=== PATIENT | male | born 1955 | race Caucasian/White ===

== ENCOUNTER 2022-01-01 18:25 | Emergency (ER) | payer MEDICARE, SELFPAY ==
[2022-01-01 18:26] VITALS: BP 138/69; PULSE 67; RESP 16; TEMP 36.6; O2SAT 98; BMI 43.0
--- NOTE | 2022-01-01 18:37 | HMH.EDGENADL ---
ED Disposition Clinical Impression: Abdominal muscle strain Disposition: Home, Self-Care Condition on Discharge: Good Instructions: DI for Muscle Strain Additional Instructions: Recommend rest along with Tylenol naproxen and muscle relaxers. Return to the ER for any new or worsening symptoms. Prescriptions: methocarbamoL [Methocarbamol] 1,500 mg PO TID PRN #15 tab PRN Reason: spasm Transmission Status: Pending to [id number] Time of Disposition: 19:58 - Critical Care Critical Care Time: No Attestation: On , the high probability of a clinically significant, sudden or life threatening deterioration of the following system(s) required my full and direct attention, intervention and personal management. The time I documented below is in addition to time spent performing reported procedures but includes the following listed in this critical care notation. Medical Decision Making - Medical Records Medical records reviewed: Yes: I reviewed the patient's medical records. - Mckay Inquiry Pt receiving controlled substance: No Vital Signs: 01/01/22 18:26 Temperature 98 F Temperature Source Oral Pulse Rate [Radial] 67 Respiratory Rate 16 Blood Pressure [Right Arm] 138/69 Blood Pressure Mean [Right Arm] 92 Blood Pressure Position [Right Arm] Sitting 02 Sat by Pulse Oximetry 98 Oxygen Delivery Method Room Air - Lab Data Lab results reviewed: Yes: I reviewed the patient's lab results. Lab Results 01/01/22 18:50: WBC 8.4, RBC 5.07, Hgb 16.2, Hct 50.3, MCV 99.0 H, MCH 31.9 H, MCHC 32.2, RDW 15.8, Plt Count 146, MPV 8.0, Neut % (Auto) 72.0, Lymph % (Auto) 20.8, [place] % (Auto) 3.8, Eos % (Auto) 1.1, Baso % (Auto) 2.2 H, Neut # (Auto) 6.1, Lymph # (Auto) 1.8, [place] # (Auto) 0.3, Eos # (Auto) 0.1, Baso # (Auto) 0.2 01/01/22 18:50: Sodium 141, Potassium 3.8, Chloride 104, Carbon Dioxide 30, Anion Gap 10.8, BUN 13, Creatinine 0.70, Estimated Creat Clear 74, Estimated GFR 112, Est GFR ( Amer) 136, Glucose 115 H, Calcium 9.5, Total Bilirubin 0.2, AST 42, ALT 34, Alkaline Phosphatase 70, Total Protein 7.3, Albumin 4.1, Globulin 3.2, Albumin/Globulin Ratio 1.3 Result diagrams: 01/01/22 18:50 01/01/22 18:50 Orders (Tests/Meds): ED MEDICATIONS Generic Name Dose Route Start Last Admin Trade Name Freq PRN Reason Stop Dose Admin Sodium Chloride 1,000 mls @ 999 mls/hr 01/01/22 19:00 01/01/22 19:32 Sod Chlor 0.9% 1000ml Bag IV 01/01/22 20:00 999 mls/hr .Q1H1M WILBERT Administration Discontinued Medications Generic Name Dose Route Start Last Admin Trade Name Freq PRN Reason Stop Dose Admin Diazepam 5 mg 01/01/22 18:56 01/01/22 19:33 Diazepam 5mg Tablet PO 01/01/22 18:57 5 mg ONCE ONE Administration Ketorolac Tromethamine 15 mg 01/01/22 18:56 01/01/22 19:32 Ketorolac 30mg/Ml Vial IV 01/01/22 18:57 15 mg ONCE ONE Administration ORDERS Category Date Time Status Urinalysis and Microscopic Stat Lab 01/01/22 18:45 Ordered - CT Data CT Scan: Abdomen Time Received: 19:55 Findings Narrative: Patient: Breezy Goddard MR#: [id number] : 1955 Acct:[id number] Age/Sex: 66 / M ADM Date: 01/01/22 Loc: ER Attending Dr: Ordering Physician: Mark Pinon MD Date of Service: 01/01/22 Procedure(s): CT abdomen pelvis wo con Accession Number(s): [id number] cc: Leroy Snyder MD; Mark Pinon MD; Provider,Referral MD~ PROCEDURE INFORMATION: Exam: CT Abdomen And Pelvis Without Contrast Exam date and time: 01/01/2022 7:03 PM Age: 66 years old Clinical indication: Abdominal pain; Localized; Right; Prior surgery; Surgery date: 6+ months; Surgery type: Gb and umbilical hernia repair; Additional info: Right abdomen/ flank pain TECHNIQUE: Imaging protocol: Computed tomography of the abdomen and pelvis without contrast. Radiation optimization: All CT scans at this facility use at least one of t
--- NOTE | 2022-01-01 18:55 | CT_ITS ---
PROCEDURE INFORMATION: Exam: CT Abdomen And Pelvis Without Contrast Exam date and time: 01/01/2022 7:03 PM Age: 66 years old Clinical indication: Abdominal pain; Localized; Right; Prior surgery; Surgery date: 6+ months; Surgery type: Gb and umbilical hernia repair; Additional info: Right abdomen/ flank pain TECHNIQUE: Imaging protocol: Computed tomography of the abdomen and pelvis without contrast. Radiation optimization: All CT scans at this facility use at least one of these dose optimization techniques: automated exposure control; mA and/or kV adjustment per patient size (includes targeted exams where dose is matched to clinical indication); or iterative reconstruction. COMPARISON: No relevant prior studies available. FINDINGS: Lungs: Dependent atelectasis and scarring. Heart: Heart is enlarged. Moderate coronary artery calcifications. Diaphragm: Sliding hiatal hernia. Liver: Normal. No mass. Gallbladder and bile ducts: Gallbladder is surgically absent. No pathologic dilation of the biliary tree. Pancreas: Mild atrophy of the otherwise unremarkable pancreas. Spleen: Normal. No splenomegaly. Adrenal glands: Normal. No mass. Kidneys and ureters: Normal. No hydronephrosis. Stomach and bowel: Minimal diverticular disease of the distal colon. No evidence of diverticulitis. Appendix: The appendix appears normal. Intraperitoneal space: Unremarkable. No free air. No significant fluid collection. Vasculature: Calcifications within the aorta and its branches. Lymph nodes: Unremarkable. No enlarged lymph nodes. Urinary bladder: Unremarkable as visualized. Reproductive: Unremarkable as visualized. Bones/joints: Did degenerative spondylosis, rotoscoliosis and facet arthropathy are identified within the spine. Osteophytosis and eburnation of the sacroiliac joints and hips. Skeletal structures are negative for evidence of aggressive process or acute fracture. Diffuse degenerative disc and facet disease result in multilevel central and foraminal stenosis within the lumbar spine. Soft tissues: Retention sutures are identified in the anterior abdominal wall midline. Bilateral fat containing inguinal hernias. IMPRESSION: 1. No evidence for acute process is identified on CT of abdomen and pelvis. 2. Cardiomegaly. 3. Atherosclerotic vascular disease. 4. Sliding hiatal hernia. 5. Gallbladder is surgically absent. No pathologic dilation of the biliary tree. 6. The appendix appears normal. 7. Retention sutures are identified in the anterior abdominal wall midline. 8. Minimal diverticular disease of the distal colon. No evidence of diverticulitis. 9. Bilateral fat containing inguinal hernias. 10. Degenerative disc and facet disease result in multilevel central and foraminal stenosis within the lumbar spine.
[2022-01-01 19:05] LABS: Basophils # 0.2 K/mm3 (0-0.2); Basophils % 2.2 % (0.1-2.0); Eosinophils # 0.1 K/mm3 (0.0-0.4); Eosinophils % 1.1 % (0.1-12.0); Hematocrit 50.3 % (42.0-52.0); Hemoglobin 16.2 g/dL (14.1-18.0); Lymphocytes # 1.8 K/mm3 (0.7-4.5); Lymphocytes % 20.8 % (10-50); Mean Corpuscular HGB Conc 32.2 g/dL (31.8-35.4); Mean Corpuscular Hemoglobin 31.9 pg (27.0-31.2); Monocytes # 0.3 K/mm3 (0.1-1.0); Monocytes % 3.8 % (1.7-9.3); Neutrophils # 6.1 K/mm3 (1.8-7.8); Platelet Count 146 K/mm3 (142-424); Red Blood Count 5.07 M/mm3 (4.60-6.20); Red Cell Distribution Width 15.8 % (11.5-17.5); White Blood Count 8.4 K/mm3 (4.8-10.8)
[2022-01-01 19:13] LABS: Alanine Aminotransferase 34 U/L (12-78); Albumin Level 4.1 g/dl (3.5-5.0); Albumin/Globulin Ratio 1.3 (1.1-1.8); Alkaline Phosphatase 70 U/L (38-126); Anion Gap 10.8 mEq/L (5-15); Aspartate Amino Transferase 42 U/L (17-59); Bilirubin,Total 0.2 mg/dl (0.2-1.3); Blood Urea Nitrogen 13 mg/dl (9-20); Calcium 9.5 mg/dl (8.4-10.2); Carbon Dioxide 30 mmol/L (22.0-30.0); Chloride 104 mmol/L (98-107); Creatinine Clearance Estimated 74 mL/min (50-200); Estimated Glomerular Filt Rate 112 ml/min (>60); GFR (African American) 136 ML/MIN (>60); Globulin 3.2 g/dL (1.3-3.2); Glucose 115 mg/dl (74-100); Potassium 3.8 mmoL/L (3.5-5.1); Sodium 141 mmol/L (136-145); Total Protein,Serum 7.3 g/dl (6.3-8.2)
[2022-01-01 20:37] VITALS: BP 138/69; PULSE 67; RESP 18; TEMP 37.1; O2SAT 98
== END 2022-01-01 20:40 | disposition home or self-care (01) ==
PROVIDERS: Emergency Provider Student in an Organized Health Care Education/Training Program
DX: S39.011A Strain of muscle, fascia and tendon of abdomen, initial encounter (principal); E66.9 Obesity, unspecified; Z68.41 Body mass index [BMI] 40.0-44.9, adult
CPT/HCPCS: 74176; 80053; 85025; 96365; 96375; 99284

== ENCOUNTER → 2023-01-13 10:18 | Outpatient (CLI) | payer MEDICARE, SELFPAY ==
--- NOTE | 2023-01-13 10:23 | XR_ITS ---
FINAL REPORT CLINICAL HISTORY: Clinical History Right knee pain w arthritis x yrs, worsened recently COMPARISON: None FINDINGS: Three views of the right knee reveal no evidence of fracture or dislocation. The bony alignment is normal. There is moderate and severe degenerative change. There is severe medial compartment narrowing. There is a moderate joint effusion. No localized soft tissue abnormality is identified. IMPRESSION: Degenerative change without acute abnormality identified. Reviewed, Interpreted and Dictated by Magen Kelley III, MD Transcribed by Jasmin Darnell Authenticated and [facility]
--- NOTE | 2023-01-13 10:23 | XR_ITS ---
FINAL REPORT CLINICAL HISTORY: Left knee pain w arthritis x yrs, worsened recently COMPARISON: None FINDINGS: Three views of the left knee reveal no evidence of fracture or dislocation. The bony alignment is normal. There is moderate and severe degenerative change. There is severe medial compartment narrowing. There is no evidence of joint effusion. Multiple soft tissue calcifications are noted. IMPRESSION: Degenerative change without acute abnormality identified. Reviewed, Interpreted and Dictated by Magen Kelley III, MD Transcribed by Jasmin Darnell Authenticated and [facility]
== END ==
PROVIDERS: PCP Nurse Practitioner Family; Visit Provider Orthopaedic Surgery
DX: M25.561 Pain in right knee; M25.562 Pain in left knee
CPT/HCPCS: 73562

== ENCOUNTER → 2023-02-09 13:49 | Outpatient (CLI) | payer MEDICARE, SELFPAY ==
[2023-02-09 14:16] LABS: Basophils % 0.2 % (0.1-2.0); Eosinophils # 0.1 K/mm3 (0.0-0.4); Eosinophils % 1.8 % (0.1-12.0); Hematocrit 47.5 % (42.0-52.0); Hemoglobin 15.2 g/dL (14.1-18.0); Lymphocytes # 1.5 K/mm3 (0.7-4.5); Lymphocytes % 21.1 % (10-50); Mean Corpuscular HGB Conc 31.9 g/dL (31.8-35.4); Mean Corpuscular Hemoglobin 30.7 pg (27.0-31.2); Mean Corpuscular Volume 96.4 fl (80-94); Mean Platelet Volume 8.1 fl (7.4-10.4); Monocytes # 0.3 K/mm3 (0.1-1.0); Monocytes % 3.9 % (1.7-9.3); Neutrophils # 5.3 K/mm3 (1.8-7.8); Platelet Count 106 K/mm3 (142-424); Red Blood Count 4.93 M/mm3 (4.60-6.20); Red Cell Distribution Width 15.2 % (11.5-17.5); White Blood Count 7.3 K/mm3 (4.8-10.8)
[2023-02-11 14:01] LABS: Peripheral Smear Review Scanned Result
== END ==
PROVIDERS: PCP Nurse Practitioner Family; Visit Provider Internal Medicine Medical Oncology
DX: D69.6 Thrombocytopenia, unspecified (principal); D69.59 Other secondary thrombocytopenia
CPT/HCPCS: 36415; 85025

== ENCOUNTER 2024-10-15 08:54 | Day surgery (SDC) | payer MEDICARE, SELFPAY ==
--- NOTE | 2024-10-14 10:11 | SUR.PREOP ---
1011: Attempted. No VM set up.
[2024-10-14 10:20] VITALS: BMI 43.0
[2024-10-15 09:18] VITALS: BP 152/89; PULSE 61; RESP 20; TEMP 36.6; O2SAT 95
[2024-10-15] MEDS: LACTATED RINGERS 1000ML 1,000 ML 50 ML IV (09:24)
[2024-10-15 09:31] LABS: POC Glucose,Bedside 123 (70-110)
--- NOTE | 2024-10-15 10:14 | EXP.GEN.HP ---
HPI HPI HPI: This is a 68-year-old gentleman who presents for colonoscopy. He reports a remote history of a few small polyps . He believes his most recent colonoscopy was in 2014. [facility] Disclaimer: The information contained in this section may have been updated after the patient was seen, as this information can be updated by other users. Medical History (Updated 10/15/24 @ 10:15 by Monty Mares MD) Hypertension Diabetes Surgical History Hx of knee surgery Hx of shoulder surgery Hx of umbilical hernia repair Hx laparoscopic cholecystectomy Family History Diabetes Sister Mother Social History Smoking Status: Former smoker alcohol intake: never current occupational status: other Travel in the last 8 weeks: None caffeine: Yes Have you lived/traveled outside [place] in past 30 days?: No Contact w/someone who lives/traveled outside US past 30 days?: No Exposure to someone with infectious disease in past 14 days?: No Do you have a fever (greater than 100.4 F or 38 C)?: No Have you tested positive for COVID-19: No Exposed to someone with COVID-19 in past 14 days?: No Do you have a sore throat?: No Do you have a cough?: No Do you have any weakness?: No Are you experiencing any nausea/vomitting?: No Do you have any diarrhea?: No Are you experiencing any unusual bleeding?: No Do you have any muscle aches/pain?: No Do you have any abdominal pain?: No Are you experiencing loss of taste or smell?: No Other Medical History Have you received the Flu Vaccine for this season: Yes Have you received the Pneumonia Vaccine: No Review of Systems Review of Systems Review of systems:: pertinent systems reviewed and negative unless documented below Meds Home Medications and Allergies Home Medications ?Medication ?Instructions ?Recorded ?Confirmed ?Type allopurinol 300 mg tablet 300 mg PO DAILY 01/13/23 10/14/24 History naproxen 500 mg tablet,delayed 500 tab PO NEEDED PRN Pain 01/13/23 10/14/24 History release (EC-Naproxen) glipizide 5 mg tablet 5 mg PO DAILY 02/09/23 10/14/24 History lisinopril 10 mg tablet 30 mg PO DAILY 02/09/23 10/14/24 History methocarbamol 500 mg tablet 500 mg PO DAILY 04/14/23 10/14/24 History New Prescriptions to Start Prescriptions: Allergies Allergy/AdvReac Type Severity Reaction Status Date / Time No Known Allergies Allergy Verified 10/14/24 10:18 Exam Data for Last 24 hours Vital signs and Labs for Last 24 Hours: Temp Pulse Resp BP Pulse Ox O2 Del Method 97.9 F 61 20 152/89 H 95 Room Air 10/15/24 09:18 10/15/24 09:18 10/15/24 09:18 10/15/24 09:18 10/15/24 09:18 10/15/24 09:18 Laboratory Results - last 24 hr 10/15/24 09:22: POC Glucose 123 H I & O for Last 24 hours: Intake & Output 10/12/24 10/13/24 10/14/24 10/15/24 11:59 11:59 11:59 11:59 Weight 300 lb Constitutional Constitutional: no acute distress *Routine HEENT Exam Head: Present normocephalic Eye: Present EOMI ENT: Present mucous membranes moist *Routine Respiratory Exam Respiratory: Absent respiratory distress *Routine Cardiovascular Exam Cardiovascular: Absent tachycardia *Routine Abdominal Exam Abdominal: Present soft *Routine Rectal Exam Rectal:: deferred *Routine Genitalia Exam Genitalia:: deferred *Routine Neurological Exam Neurological: Present alert Routine Psychiatric Exam Psychiatric: Present normal affect Results Results Lab Results Last 24 Hours:: Laboratory Results - last 24 hr 10/15/24 09:22: POC Glucose 123 H Assessment and Plan *Assessment and plan (1) History of colon polyps: Status: Acute Category: Medical Code(s): Z86.0100 - Personal history of colon polyps, unspecified Plan: Colonoscopy today I have discussed the risks and benefits including, but not limited to: Bleeding Infection Damage to surrounding tissue Inherent risks of sedation The patient agrees to proceed.
[2024-10-15 10:25] VITALS: O2SAT 95
--- NOTE | 2024-10-15 10:49 | HMH.SCOPE ---
Procedure: Date: 10/15/24 Patient Date of :: 1955 Procedure Performed:: Colonoscopy Indications:: History of polyps Performing Provider:: Monty Mares MD Referring Provider:: . Sedation:: Monitored anesthesia care Procedure:: After informed consent was obtained the patient was taken to the endoscopy suite. Sedation ensued after the patient was transferred to the left lateral decubitus position. Pulse, blood pressure, and oxygen saturation were monitored throughout the procedure. Digital rectal exam revealed no significant abnormality. The colonoscope was placed in position. The entire colon was evaluated. The colonoscope was carefully removed and the patient was transferred to recovery in stable condition. Please see findings and specimens below for detail. Findings:: Bowel preparation moderate to poor Moderate tortuosity Significant spasticity Hemorrhoidal cushion/tag Specimens:: None Recommendations:: Repeat colonoscopy in 1-2 years with extended/alternate bowel preparation secondary to limited preparation, tortuosity, and spasticity,. Complications:: No immediate with the exception of moderate to poor bowel preparation Estimated blood obtained (mL): 0 Colonoscopy Component Colonoscopy Component Was a colonoscopy performed during today's procedure?: Yes Recommended follow up colonoscopy of at least 10 years?: No If no, follow up colonoscopy recommended in ___ years?: (See above) Reason for not recommending >/= 10 yr follow-up interval?: (See above)
[2024-10-15 10:53] VITALS: BP 87/48; PULSE 70; RESP 15; TEMP 36.1; O2SAT 98
[2024-10-15 11:03] VITALS: BP 104/79; PULSE 62; RESP 16; O2SAT 96
[2024-10-15 11:13] VITALS: BP 100/66; PULSE 60; RESP 17; O2SAT 97
[2024-10-15 11:23] VITALS: BP 124/72; PULSE 66; RESP 18; O2SAT 96
--- NOTE | 2024-10-15 11:55 | P.PNANES_ITS ---
[facility] Disclaimer: The information contained in this section may have been updated after the patient was seen, as this information can be updated by other users. Medical History (Updated 10/15/24 @ 10:15 by Monty Mares MD) Hypertension Diabetes Surgical History Hx of knee surgery Hx of shoulder surgery Hx of umbilical hernia repair Hx laparoscopic cholecystectomy Family History Sister Diabetes Mother Diabetes Social History Smoking Status: Former smoker alcohol intake: never substance use type: denies use current occupational status: other Travel in the last 8 weeks: None caffeine: Yes [facility] Anesthesia Checklist Patient Identification Patient Identification: Arm Band and Family Structural Data Admitted From: Home Planned Operative Procedure/s: Colonoscopy Consent for Planned Operative Procedure(s) Verified: Yes Verified Documents: Surgical Consent and History and Physical NPO Status Verified Time NPO: 00:00 Additional verifications Patient : No Anesthesia Reactions: No Hx Blood Transfusions: No Blood Transfusion Reaction: No Cephalosporin Allergy: No Previous Colonoscopy: Yes Airway Assessment Mallampati Score:: Class III C-Spine Mobility Assessed: Yes TMJ Mobility Assessed: Yes Dentition: Good Dentition Neurological Assessment Level of Consciousness: Awake, Alert, Appropriate and Follows Commands Hx Seizures: No Numbness or tingling in extremities: No Anesthesia Plan Anesthesia Risk discussed: Yes ASA Class: III Anesthesia Type: MAC Preoperative Comments Pre-Operative Comments: Obesity.
== END 2024-10-15 11:24 | disposition home or self-care (01) ==
PROVIDERS: PCP Nurse Practitioner Family; Visit Provider Surgery
PROC: 0DJD8ZZ Inspection of Lower Intestinal Tract, Via Natural or Artificial Opening Endoscopic (ICD-10-PCS; CPT 45378; principal; 2024-10-15 10:30)
DX: K64.9 Unspecified hemorrhoids (principal); Z86.0100 Personal history of colon polyps, unspecified; E11.9 Type 2 diabetes mellitus without complications
CPT/HCPCS: 45378; 82962; J7120

== ENCOUNTER 2024-11-12 07:42 | Outpatient (CLI) | payer MEDICARE, SELFPAY ==
--- NOTE | 2024-11-12 | CA_ITS ---
APPROVED REPORT Exam: Pharmacologic Technologist: Yoana Veliz Ht: 5 ft 11 in Wt: 300 lbs BSA: 2.51 m2 HR: 60 bpm BP: 191/80 mmHg Stress Test Details Test: Lexiscan HR Resting HR: 60 bpm Max Heart Rate (APMHR): 150.482446 bpm Max HR Achieved: 70 bpm Target HR (85% APMHR): 127.109544 bpm % of APMHR: 46.67 Recovery HR: 68 bpm BP Resting BP: 191.0/80.0 mmHg Max BP: 191.0/80.0 mmHg Recovery BP: 173.0/83.0 mmHg ECG Resting ECG: Sinus rhythm Stress ECG Conclusion Symptoms: Dizziness, headache, nausea, chest tightness Arrhythmias/Ectopy: PVC, Trigeminy ST-T Changes: Less than [address] depression. Conclusion: EKG unremarkable due to Lexiscan infusion. Electronically signed by : Sherita Gabriel MD 11/12/2024 15:08:03
--- NOTE | 2024-11-12 07:45 | NM_ITS ---
APPROVED REPORT Exam: Nuclear Stress Test Indication: Chest pain, SOB, HTN, DM, High cholesterol, Family history Patient Location: Outpatient Stress Tech: Yoana Veliz [place] Tech:Shey Franklin, ARRT, RT (R)(N) Ht: 5 ft 11 in Wt: 300 lbs HR: 60 bpm BP: 190/80 mmHg BSA: 2.51 m2 TID: 1.17 BMI: 41.8 History: Chest pain, SOB, HTN, DM, High cholesterol, Family history Procedure: Patient received 0.4 mg of intravenous Lexiscan, resting heart rate 60 bpm, resting blood pressure 190/80 mmHg, with Lexiscan maximum heart rate achieved was 78 bpm which is % of the maximum predicted heart rate and blood pressure was 182/84 mmHg. With Lexiscan, patient denied any complaint of chest pain. Cardiac Stress and Resting SPECT Images: Cardiac Stress and Resting SPECT images were obtained using technetium 99m Myoview 32.6 mCi stress and 10.57 mCi at rest. The patient could not lie on his abdomen. Therefore, prone stress imaging could not be performed. This may affect the diagnostic interpretation of the study findings. There is a large sized, moderate, partially reversible perfusion defect in the inferior, inferoseptal, and apical LV damon. Gated imaging demonstrates mild reduction in global LV systolic function. There is moderate hypokinesis of the basal inferior and inferior septal LV damon. LVEF is calculated at 45%. Conclusion: Large sized, moderate, partially reversible perfusion defect in the inferior, inferoseptal, and apical LV damon. Findings are suggestive of partial reversible ischemia. Gated imaging demonstrates mild reduction in global LV systolic function. There is moderate hypokinesis of the basal inferior and inferior septal LV damon. LVEF is calculated at 45%. Electronically signed by : Sherita Gabriel MD 11/12/2024 13:19:32
[2024-11-12] MEDS: REGADENOSON 0.4MG/5ML SYRINGE 0.4 MG IV (09:27)
[2024-11-12] MEDS: SODIUM CHLORIDE 0.9% 10ML SYR (RAD ONLY) 10 ML IV ×2 (09:27)
[2024-11-12] MEDS: ISOTOPE MYOVIEW (PER STUDY) 1 DOSE IV (09:27)
== END 2024-11-12 23:59 | disposition home or self-care (01) ==
LOC: RAD 07:42
PROVIDERS: PCP Nurse Practitioner Family; Visit Provider Nurse Practitioner Family
DX: R07.9 Chest pain, unspecified (principal); R06.02 Shortness of breath; I10 Essential (primary) hypertension
CPT/HCPCS: 78452; 93017; 93018; A9502; J2785

== ENCOUNTER 2025-06-23 08:36 | Outpatient (CLI) | payer MEDICARE, SELFPAY ==
--- OUTSIDE RECORDS SUMMARY | 2021-10-26 06:30 | XMS_ITS | Continuity of Care Document ---
Author Organization [facility] Address [address] [place] [address] Phone Care Team Providers Care Yoga Teacher Name Role Phone Sebastien Nguyen PA-C Unavailable Unavailable Allergies, Adverse Reactions, Alerts Substance Reaction Status Criticality No Known Allergies Active No Inform ation Medications Medication Instructions Dosage Effective Dates (start - stop) Status Comments NAPROXEN 500 MG TABLET TAKE 1 TABLET BY MOUTH TWICE A DAY WITH FOOD - Active lisinopril 10 mg tablet take 2 tablet by oral route every day 20 MG - Active Janumet 50 mg-1,000 mg tablet take 1 tablet by oral route 2 times every day with meals 1.00 tablet - Active glipizide 10 mg tablet take 1 tablet by oral route every day before a meal 10 MG - Active allopurinol 100 mg tablet take 1 tablet by oral route every day 100 MG - Active Procedures Procedure Date Offic/outpt E&m Estab Low-mod 2 Triamcinolone Acetonide/10 Mg 2 Arthrocentesis/aspir/inj; [facility] 22 Triamcinolone Acetonide/10 Mg 2 Arthrocentesis/aspir/inj; [facility] 22 Triamcinolone Acetonide/10 Mg 1 Arthrocentesis/aspir/inj; [facility] 21 Triamcinolone Acetonide/10 Mg 1 Arthrocentesis/aspir/inj; [facility] 21 Offic/outpt E&m Estab Low-mod 1 Rad Exam Knee; 4 View Triamcinolone Acetonide/10 Mg 1 Arthrocentesis/aspir/inj; [facility] 21 Triamcinolone Acetonide/10 Mg 1 Arthrocentesis/aspir/inj; [facility] 21 Offic/outpt E&m Estab Low-mod 1 Triamcinolone Acetonide/10 Mg 1 Arthrocentesis/aspir/inj; [facility] 21 Triamcinolone Acetonide/10 Mg 1 Arthrocentesis/aspir/inj; [facility] Offic/outpt E&m Estab Low-mod 1 Triamcinolone Acetonide/10 Mg 1 Arthrocentesis/aspir/inj; [facility] 21 Triamcinolone Acetonide/10 Mg 1 Arthrocentesis/aspir/inj; [facility] 21 Offic/outpt E&m Estab Low-mod 1 Therap 1/> Areas/15 Min; Exerc 20 Therap 1/> Area/15 Min; Balnc/ 20 Man Ther Tech-1/> Regions-ea 20 Therap 1/> Areas/15 Min; Exerc 20 Therap 1/> Area/15 Min; Balnc/ 20 Man Ther Tech-1/> Regions-ea 1 20 Rad Exam Knee; 4 View Triamcinolone Acetonide/10 Mg 0 Arthrocentesis/aspir/inj; [facility] 20 Offic/outpt E&m Estab Low-mod 0 Therap 1/> Areas/15 Min; Exerc 20 Man Ther Tech-1/> Regions-ea 1 20 Electrical Stimulation Therap 1/> Areas/15 Min; Exerc 20 Man Ther Tech-1/> Regions-ea 1 20 Therap 1/> Areas/15 Min; Exerc 20 Man Ther Tech-1/> Regions-ea 1 20 Rad Exam Shoulder; Comp Postop F/u Visit Incld Global 0 Therap 1/> Areas/15 Min; Exerc 20 Man Ther Tech-1/> Regions-ea 1 20 Electrical Stimulation Therap 1/> Areas/15 Min; Exerc 20 Man Ther Tech-1/> Regions-ea 1 20 Applic Modal 1/> Areas; Elec S 20 Postop F/u Visit Incld Global 0 Rad Exam Shoulder; Comp Postop F/u Visit Incld Global 0 Arthroplasty Gh Jt; Tot Shldr 0 Arthro Gh Jt; Tot Shldr Assist 20 So Fig 8 Abduct Restrain Canva 20 Unlisted E&M Pre Op Potential Charges/surgery Offic/outpt E&m Estab Mod-hi 2 20 No Visit Offic/outpt E&m Estab Mod-hi 2 19 Triamcinolone Acetonide/10 Mg 9 Arthrocentesis/aspir/inj; [facility] 19 Triamcinolone Acetonide/10 Mg 9 Arthrocentesis/aspir/inj; [facility] 19 Slings Triamcinolone Acetonide/10 Mg 9 Betamethasone Acetate-na Phos 9 Triamcinolone Acetonide/10 Mg 9 Arthrocentesis/aspir/inj; [facility] 19 Offic/outpt E&m Estab Low-mod 9 Offic/outpt E&m Estab Mod-hi 2 19 Betamethasone Acetate-na Phos 9 Triamcinolone Acetonide/10 Mg 9 Arthrocentesis/aspir/inj; [facility] 19 Arthrocentesis/aspir/inj; [facility] 19 Offic/outpt E&m New Mod-hi 45 9 Methylprednisolone Acetate-40 9 Arthrocentesis/aspir/inj; [facility] 19 Methylprednisolone Acetate-40 9 Arthrocentesis/aspir/inj; [facility] 19 Offic/outpt E&m Estab Low-mod 9 Rad Exam Knee; 4 View Rad Exam Shoulder; Comp Rad Exam Knee; 4 View Betamethasone Acetate-na Phos 8 Arthrocentesis/aspir/inj; [facility] 18 Arthrocentesis/aspir/inj; [facility] 18 Offic/outpt E&m Estab Mod-hi 2 18 Offic/outpt E&m Estab Mod-hi 2 18 Arthrocentesis/aspir/inj; [facility] 18 Betamethasone Acetate-na Phos 8 Offic/outpt E&m Estab Mod-hi 2 18 Arthrocentesis/aspir/inj; [facility] 18 Arthrocentesis/aspir/inj; [facility] 17 Betamethasone Acetate-na Phos 7 Offic/outpt E&m Estab Mod-hi 4 17 Arthrocentesis/aspir/inj; [facility] 17 Offic/outpt E&m Estab Mod-hi 2 17 Arthrocentesis/aspir/inj; [facility] 17 Betamethasone Acetate-na Phos 7 Arthrocentesis/aspir/inj; [facility] 17 Offic/outpt E&m Estab Low-mod 7 Arthrocentesis/aspir/inj; [facility] 17 Betamethasone Acetate-na Phos 7 Offic/outpt E&m Estab Mod-hi 2 17 Arthrocentesis/aspir/inj; [facility] 17 Arthrocentesis/aspir/inj; [facility] 16 Betamethasone Acetate-na Phos 6 Betamethasone Acetate-na Phos 6 Arthrocentesis/aspir/inj; [facility] 16 Arthrocentesis/aspir/inj; [facility] 16 Betamethasone Acetate-na Phos 6 Betamethasone Acetate-na Phos 6 Offic/outpt E&m Estab Low-mod 6 Arthrocentesis/aspir/inj; [facility] 16 Arthrocentesis/aspir/inj; [facility] 16 Betamethasone Acetate-na Phos 6 Offic/outpt E&m Estab Mod-hi 2 16 Arthrocentesis/aspir/inj; [facility] 16 Rad Exam Knee; Three Views Rad Exam Knee; Three Views Arthrocentesis/aspir/inj; [facility] 16 Betamethasone Acetate-na Phos 6 Betamethasone Acetate-na Phos 6 Offic/outpt E&m New Mod Sever 6 Arthrocentesis/aspir/inj; [facility] 16 Advance Directives Directive Yes / No Effective Date File Name No Information Encounters Encounter Description Practice Location Reason(s) For Visit Diagnoses Date Provider Providers Copied on Encounter Offic/outpt E&m Estab Low-mod [facility], [address], [place], [place], [address], [place] tel:[phone] /[facility] Acute pain of left kneeAcute pain of right kneeOsteoart hritis of knees, bilateralUni lateral primary osteoarthrit is, left knee Sep- 2 Wendy Crowe. [address], [address], [place], [place], [address], [place]. tel:[phone] Referring Provider: Sebastien Nguyen, [address], [place], [address] . tel:[phone] Offic/outpt E&m Estab Low-mod [facility], [address] [address], [place], [place], [address], [place] tel:[phone] /[facility] Over[place] pain of left kneeAcute pain of right kneePrimary osteoarthrit is of right kneeUnilater al primary osteoarthrit is, left kneeVenous stasis dermatitis of left lower extremityWei ght loss advisedFlexi on contracture of left kneeFlexion contracture of right kneeGenu varum of right lower extremityGen u varum of left lower extremityObe sity, unspecified Dec- 1 Stack Lee. [address] [address], [place], [place], [address], [place]. tel:[phone] Referring Provider: Sebastien Nguyen, [address] [place] [address], [place], [address] . tel:[phone] [facility], [address], [id number], [place] tel:[phone] /[facility] No Information Mar- 1 Stack Lee. [facility] [address], [place], [place], [address], [place]. tel:[phone] Offic/outpt E&m Estab [facility], [address] [address], [place], [place], [address], [place] tel:[phone] /[facility] OverweightAc [place] pain of left kneeAcute pain of right kneePrimary osteoarthrit is of right kneeUnilater al primary osteoarthrit is, left kneeVenous stasis dermatitis of left lower extremityWei ght loss advisedFlexi on contracture of left kneeFlexion contracture of right kneeGenu varum of right lower extremityGen u varum of left lower extremityObe sity, unspecified Sep-2 1 Stack Lee. [facility], [address], [place], [place], [address], [place]. tel:[phone] Referring Provider: Lee Mclean, [address], [place], [address] . tel:[phone] Offic/outpt E&m Estab Low-mod [facility], [address], [place], [address], [place] tel:[phone] [facility] Acute pain of left kneeAcute pain of right kneePrimary osteoarthrit is of right kneeUnilater al primary osteoarthrit is, left kneeVenous stasis dermatitis of left lower extremityWei ght loss advisedFlexi on contracture of left kneeFlexion contracture of right kneeGenu varum of right lower extremityGen u varum of left lower extremityOve [facility] 1 Segundo Howard. [address], [address], [place], [address], [place]. tel:[phone] Referring Provider: Lee Mclean, [address], [place], [address] . tel:[phone] Offic/outpt E&m Estab Low-mod [facility], [address], [place], [address], [place] tel:[phone] [facility] Unilateral primary osteoarthrit is, left kneePrimary osteoarthrit is of right kneeAcute pain of left kneeAcute pain of right kneeVenous stasis dermatitis of left lower extremityWei ght loss advisedMorbi d (severe) obesity due to excess calories 1 Segundo Howard. [address], [address], [place], [address], [place]. tel:[phone] Referring Provider: Lee Mclean, [address], [place], [address] . tel:[phone] [facility], [address], [place], [address], [place] tel:[phone] [facility] No Information 0 [place] Brigid. [address], [place], [address], [place]. tel:[phone] Referring Provider: Brigid Sheriff, [address], [place], [address] . tel:[phone] [facility], [address], [place], [address], [place] tel:[phone] [facility] No Information 0 [place] Brigid. [address], [address], [place], [place], [address], [place]. tel:[phone] Referring Provider: Brigid Sheriff, [address], [place], [address] . tel:[phone] Offic/outpt E&m Estab Low-mod [facility], [address], [place], [address], [place] tel:[phone] [facility] Unilateral primary osteoarthrit is, left kneePrimary osteoarthrit is of right kneeAcute pain of left kneeAcute pain of right kneeOverweig ht 0 Segundo Howard. [address], [address], [place], [address], [place]. tel:[phone] Referring Provider: Lee Mclean, [address], [place], [address] . tel:[phone] [facility], [address], [place], [address], [place] tel:[phone] [facility] No Information 0 [place] Brigid. [address], [address], [place], [address], . tel:[phone] Referring Provider: Brigid Sheriff, [address], [place], [address] . tel:[phone] [facility], [address], [place], [place], [address], tel:[phone] [facility] No Information Oct-0 0 [place] Brigid. [address], [address], [place], [place], [address], . tel:[phone] Referring Provider: Brigid Sheriff, [address], [place], [address] . tel:[phone] [facility], [address], [place], [address], tel:[phone] [facility] No Information Oct-0 0 [place] Brigid. [address], [address], [place], [address], . tel:[phone] Referring Provider: Brigid Sheriff, [address], [place], [address] . tel:[phone] [facility], [address], [place], [address], tel:[phone] [facility] S/P (R) shoulder (chief complaint) Other specific joint derangement of right shoulder 0 Panattoni Seamus. [address], [place], [place], [address], [place]. tel:[phone] Referring Provider: Brigid Sheriff, [address], [place], [address] . tel:[phone] [facility], [address], [place], [address], tel:[phone] [facility] No Information 0 [place] Brigid. [address], [address], [place], [address], [place]. tel:[phone] Referring Provider: Brigid Sheriff, [address], [place], [address] . tel:[phone] [facility], [address], [place], [address], [place] tel:[phone] [facility] No Information 0 [place] Brig[place]. [address], [place], [address], [place]. tel:[phone] Referring Provider: Brigid Sheriff, [address], [place], [address] . tel:[phone] [facility], [address], [place], [address], [place] tel:[phone] [facility] P/O Right shoulder (chief complaint) Obesity, unspecifiedP rimary osteoarthrit is of right shoulder 0 Helcony Corenlius. [address], [address], [place], [place], [address], [place]. tel:[phone] Referring Provider: Brigid Sheriff, [address], [place], [address] . tel:[phone] [facility], [address], [place], [address], [place] tel:[phone] [facility] P/O (R) shoulder (chief complaint) Primary osteoarthrit is of right shoulderObes ity, unspecified 0 [place] Brigid. [address], [place], [address], [place]. tel:[phone] Referring Provider: Brigid Sheriff, [address], [place], [address] . tel:[phone] [facility], [address], [place], [address], [place] tel:[phone] [facility] No Information 0 [place] Brigid. [address], [place], [address], [place]. tel:[phone] Referring Provider: Brigid Sheriff, [address], [place], [address] . tel:[phone] Unlisted E&M Pre Op [facility], [address], [place], [address], [place] tel:[phone] [facility] (R) shoulder (chief complaint) Obesity, unspecifiedP rimary osteoarthrit is of right shoulder 0 [place]id. [address], [place], [address], [place]. tel:[phone] Referring Provider: Brigid Sheriff, [address], [place], [address] . tel:[phone] [facility], [address], [place], [address], [place] tel:[phone] [facility] No Information 0 [place]. [address], [place], [address], [place]. tel:[phone] Referring Provider: Brigid Sheriff, [address], [place], [address] . tel:[phone] Offic/outpt E&m Estab Mod-hi 2 [facility], [address], [place], [address], [place] tel:[phone] [facility] Obesity, unspecifiedP rimary osteoarthrit is of right shoulderPain in right shoulder 0 Poli Burgess. [address], [place], [place], [address], [place]. tel:[phone] Referring Provider: Lee Mclean, [address], [place], [address] . tel:[phone] [facility], [address], [place], [place], [address], [place] tel:[phone] [facility] Pain in right shoulderOthe r specific joint derangement of right shoulderUnil ateral primary osteoarthrit is, left kneePrimary osteoarthrit is of right kneePrimary osteoarthrit is of right shoulderAcut e pain of left kneeAcute pain of right knee 0 Segundo Howard. [address], [address], [place], [address], [place]. tel:[phone] [facility], [address], [place], [address], [place] tel:[phone] [facility] No Information Segundo Lee. [address], [address], [place], [address], [place]. tel:[phone] Referring Provider: Lee Mclean, [address], [place], [address] . tel:[phone] Offic/outpt E&m Estab Mod-hi 2 [facility], [address], [place], [address], [place] tel:[phone] [facility] Pain in right shoulderOthe r specific joint derangement of right shoulderUnil ateral primary osteoarthrit is, left kneePrimary osteoarthrit is of right kneePrimary osteoarthrit is of right shoulderAcut e pain of left kneeAcute pain of right knee 9 Segundo Lee. [address], [address], [place], [address], [place]. tel:[phone] Referring Provider: Lee Mclean, [address], [place], [address] . tel:[phone] Offic/outpt E&m Estab Low-mod [facility], [address], [place], [address], [place] tel:[phone] [facility] Right Shoulder (chief complaint) Obesity, unspecifiedP rimary osteoarthrit is of right shoulderAcut e pain of right shoulder 9 Segundo Lee. [address], [address], [place], [address], [place]. tel:[phone] Referring Provider: Lee Mclean, [address], [place], [address] . tel:[phone] Offic/outpt E&m New Mod-hi 45 [facility], [address], [place], [place], [address], [place] tel:[phone] [facility] Bilateral Knee (chief complaint) Obesity, unspecifiedP rimary osteoarthrit is of right kneePrimary osteoarthrit is of left kneeAcute pain of right kneeAcute pain of left knee 9 Segundo Stocktonson. [address], [address], [place], [place], [address], [place]. tel:[phone] Referring Provider: Lee Mclean, [address], [place], [address] . tel:[phone] Offic/outpt E&m Estab Low-mod [facility], [address], [place], [place], [address], [place] tel:[phone] [facility] Pain of right Shoulder (chief complaint)Fo llow Up of Pain of right Knee (chief complaint)Fo llow Up of Pain of left knee (chief complaint) Primary osteoarthrit is of right kneePrimary osteoarthrit is of left kneeRight shoulder pain, unspecified chronicityOb esity, unspecified 9 Monica Munoz. [address] [facility] [address], [address], [place], [place], [address], [place]. tel:[phone] Referring Provider: Alexander Mcintyre, [address], [place], [address] . tel:[phone] Offic/outpt E&m Estab Mod-hi 2 [facility], [address] [facility] [address], [place], [address], [place] tel:[phone] [facility] right knee pain (chief complaint) Osteoarthrit is of knees, bilateralObe sity, unspecified Dec-0 8 Thang Ennis. [address] [place] [address], [address], [place], [place], [address], [place]. tel:[phone] Referring Provider: Raymon Waggoner, [address] [place] [address] [address], [place], [address] . tel:[phone] Offic/outpt E&m Estab Mod-hi 2 [facility], [address] [address], [place], [place], [address], [place] tel:[phone] [facility] L Hand Pain (chief complaint) Left hand painObesity, unspecifiedT material yard clerk finger, left middle fingerBursit is of shoulder, left Sep-2 8 Thang Ennis. [address] [place] [address], [address], [place], [address], [place]. tel:[phone] Referring Provider: Raymon Waggoner, [address] [place] [address] [address], [place], [address] . tel:[phone] Offic/outpt E&m Estab Mod-hi 2 [facility], [address] [address], [place], [place], [address], [place] tel:[phone] [facility] B/L knee pain (chief complaint) Obesity, unspecifiedP rimary osteoarthrit is of left knee Sep- 8 Thang Ennis. [address] [place] [address], [address], [place], [address], [place]. tel:[phone] Referring Provider: Raymon Waggoner, [address] [place] [address] [address], [place], [address] . tel:[phone] Offic/outpt E&m Estab Mod-hi 4 [facility], [address] [address], [place], [address], [place] tel:[phone] [facility] bilateral knee pain (chief complaint) Obesity, unspecifiedO steoarthriti s of knees, bilateralPri ephraim osteoarthrit is of left kneePrimary osteoarthrit is of right knee 7 Thang Ennis. [address], [place], [address], [place]. tel:[phone] Referring Provider: Raymon Waggoner, [address] [place] [address] [address] [facility], [place], [address] . tel:[phone] Offic/outpt E&m Estab Mod-hi 2 [facility], [address], [address], [place] tel:[phone] [facility] Bilateral OA knees (chief complaint) Obesity, unspecifiedO steoarthriti s of knees, bilateralPri ephraim osteoarthrit is of left kneePrimary osteoarthrit is of right knee 7 Thang Ennis. [address] [place] [address], [address], [place], [address], [place]. tel:[phone] Referring Provider: Raymon Waggoner, [address] [place] [address] Suite [facility], [place], [address] . tel:[phone] Offic/outpt E&m Estab Low-mod [facility], [address] [address], [place], [address], [place] tel:[phone] [facility] Follow Up of Primary Osteoarthrit is bilateral knee (chief complaint) Obesity, unspecifiedO steoarthriti s of knees, bilateral Sep- 7 Thang Ennis. [address], [place], [place], [address], [place]. tel:[phone] Referring Provider: Raymon Waggoner, [address] [address], [place], [address] . tel:[phone] Offic/outpt E&m Estab Mod-hi 2 [facility], [address] [address], [place], [address], [place] tel:[phone] [facility] Follow Up of bilateral knee pain (chief complaint) Obesity, unspecifiedO besity, unspecifiedO steoarthriti s of knees, bilateralPri ephraim osteoarthrit is of left kneePrimary osteoarthrit is of right knee 7 Thang Ennis. [address] [place] [address], [facility] [address], [place], [place], [address], [place]. tel:[phone] Referring Provider: Raymon Waggoner, [address] [place] [address], [place], [address] . tel:[phone] [facility], [address], [address], [place] tel:[phone] [facility] Generic (chief complaint) Obesity, unspecifiedO steoarthriti s of knees, bilateralPri ephraim osteoarthrit is of left kneePrimary osteoarthrit is of right knee 6 Thang Ennis. [address] [place] [address], [facility] [address], [place], [address], [place]. tel:[phone] Referring Provider: Raymon Waggoner, [address] [place] [address], [place], [address] . tel:[phone] Offic/outpt E&m Estab Low-mod [facility], [address], [address], [place] tel:[phone] [facility] Generic (chief complaint) Osteoarthrit is of knees, bilateralObe sity, unspecified 6 Thang Ennis. [address] [place] [address], [address], [place], [address], [place]. tel:[phone] Referring Provider: Raymon Waggoner, [address] [place] [address] [address], [place], [place], [address] . tel:[phone] Offic/outpt E&m Estab Mod-hi 2 [facility], [address], [id number], tel:[phone] [facility] Generic (chief complaint) Obesity, unspecifiedO steoarthriti s of knees, bilateral November- 6 Thang Ennis. [address] [place] [address], [id number], [place]. tel:[phone] Referring Provider: Raymon Waggoner, [address] [place] [address], [place], [address] . tel:[phone] Offic/outpt E&m New Mod Sever [facility], [address], [id number], tel:[phone] [facility] Generic (chief complaint) Knee pain, leftKnee pain, rightObesity , unspecifiedO steoarthriti s of knees, bilateral Fe-0 6 Thang [place]. [address] [place] [address], [place], [place], [id number], [place]. tel:[phone] Referring Provider: Raymon Waggoner, [address] [place] [address], [place], [address] . tel:[phone] Family History Family Member Type Diagnosis Age At Onset Mother Problem (finding) Congestive heart failur e Mother Problem (finding) Diabetes Mother Problem (finding) Diabetes mellitus Brother Problem (finding) Arthritis Payers Payer name Insurance type Covered democrat ID Authoriza tion(s) [place] Replacement BL [id number] Social History Type Description Quantity Date Captured Comments Alcohol Use Details No Caffeine Use Details 1 cup per day Tobacco Use Status Current non-smoker Smoking Status Never smoker Non-Smoking Tobacco Use Details : No Details Available : No Details Available Sex Male Vital Signs Date / Time: Height Weight BMI Pulse Rate Blood Pressure Temperature Respiratory Rate Body Surface Area Head Circumference Head Circ. Percentile Wt./Ronnie. Percentile BMI percentile Pulse Ox Inhaled Ox 11:12 AM 71.00 in 140.614 kg (310.00 lbs) 43.2 4 kg/m eter (2) 73 /min 161/88 mm[Hg] 2.65 meter(2) Chief Complaint And Reason For Visit No Information Reason For Referral Reason For Referral No Information Plan Of Treatment Date Type Action Status Goal Lifestyle educat ion regarding diet completed Goal Lifestyle educat ion regarding diet completed Goal Lifestyle educat ion regarding diet completed Goal Lifestyle educat ion regarding diet completed Goal Lifestyle educat ion regarding diet completed Goal Lifestyle educat ion regarding diet completed Goal Lifestyle educat ion regarding diet completed Goal Lifestyle educat ion regarding diet completed Goal Lifestyle educat ion regarding diet completed Goal Lifestyle educat ion regarding diet completed Goal Lifestyle educat ion regarding diet completed Goal Lifestyle educat ion regarding diet completed Goal Lifestyle educat ion regarding diet completed Goal Lifestyle educat ion regarding diet completed Goal Lifestyle educat ion regarding diet completed Goal Lifestyle educat ion regarding diet completed Goal Lifestyle educat ion regarding diet completed Goal Lifestyle educat ion regarding diet completed Goal Lifestyle educat ion regarding diet completed Goal Lifestyle educat ion regarding diet completed Goal Lifestyle educat ion regarding diet completed Goal Lifestyle educat ion regarding diet completed Goal Lifestyle educat ion regarding diet completed Goal Lifestyle educat ion regarding diet completed Referral Ordered: Rad Exam Knee; 4 View Bilateral knee ordered Referral Ordered: Rad Exam Shoulder; Comp Right shoulder ordered Referral Ordered: MRI Any Joint Upper Ext W/O Cont RT radius ordered Referral Ordered: Rad Exam Shoulder; Comp RT shoulder ordered Referral Ordered: Rad Exam Knee; 4 View RT knee ordered Referral Ordered: Rad Exam Knee; 4 View LT knee ordered Referral Ordered: Rad Exam Hand; Mini 3 Views LT hand ordered Referral Ordered: Rad Exam Knee; Three Views LT knee ordered Referral Ordered: Rad Exam Knee; Three Views RT knee ordered Future Order: Radiology Order Ra d Exam Hand; Mini 3 Views LT hand ([id number]), Body Site: LT, Sent on: Sent Future Order: Radiology Order Ra d Exam Knee; Three Views LT knee ([id number]), Body Site: LT, Sent on: Sent History Of Present Illness Encounter Date Complaint History Of Prese nt Illness S/P (R) shoulder The patient is a 63 year old right hand dominant male here today for P/O (R) total shoulder replacement. He presents wearing sling. Pain is intermittent 0/10, described as an ache. Patient reports he has completed PT. DOS: 09/11/2019 P/O Right shoulder The patient i s a 63 year old right hand dominant male here today for P/O (R) total shoulder replacement. He presents wearing sling. Pain severity is intermittent 1-2/10, described as an ache. Patient reports he has completed PT. DOS: 09/11/2019 P/O (R) shoulder The patient is a 63 year old right hand dominant who presents today in his sling P/O (R) total shoulder replacement. Pain is described as sharp, aching and throbbing. He also has stiffness as well. He reports his symptoms are relieved with rest and medication. Pain today is 7/10. (R) shoulder The patient is a 63 year old right hand dominant who presents today as a referral from Dr. Ashton for pre-op consultation for (R) total shoulder replacement. Onset one year, no injury. Pain is described as sharp, aching and throbbing, radiating down the right arm. He also has stiffness and limited ROM. The patient has seen Dr. Raymond and had an injection 04/11/2019 with relief for one week. The patient also had an MRI of the right shoulder. He reports his symptoms are relieved with rest and aggravated by any usage or lifting. Pain today is 7/10. Right Shoulder Patient is a 63 year old male. He is here today for his Right Shoulder. His pain today is a 5/10 He is requesting an injection. Patient had recent bilateral knee cortisone injections on 03/29/2019, which she states provided 50% improvement in his pain. He did note a slight elevation of his blood glucose following the injections. He denies any pain or swelling in his knees following the injections. Bilateral Knee Patient is a 63 year old male. He is here today for Bilateral Knee pain. He describes his symptoms as sharp and burning constantly with occasional swelling. He has difficulty with standing, walking and stairs. His pain today is a 5/10. He reports he takes Naproxen PRN & uses Pennsaid daily. He has previously received Cortisone Injections in JUDY knee by both Dr. Desir and Dr. Anderson. Last injections by Dr. Anderson on 12/28/18. Patient is diabetic and states his last A1C was 5.1. He does not smoke. He is having a sleep study for possible CLARITZA done next week. He denies any fever or chills. He works for the [employer]. He states he did have a plan to have his knees replaced in a few years. He has attempted weight loss in the past without success. Follow Up of Pain of right Knee Presenting for Further Evaluation of Right knee Pain. Pain. 5/10 which he describes as aching .Patient states he is taking Naproxen PRN for pain relief. Patient denies any radicular pain. Patient denies any numbness or tingling. Patient states his pain aggravated by weight bearing activities. Patient states his pain alleviated by medication and rest. Pain of right Shoulder Patient i s a 63 year old Male. Presenting for Further Evaluation of Right Shoulder Pain. Patient reports that he was diagnosed with bursitis of the Shoulder years ago, with minimal effects, but it has been getting progressively worse in the last 6-7 months. Pain 4-7/10 which he describes as aching and sharp. Patient states that he is taking Naproxen PRN for pain relief. Patient denies any radicular pain. Patient denies any numbness or tingling. Patient states her pain aggravated by lying down or sleeping. Patient states his pain alleviated by rest and elevation. Patient reports that he saw Dr. Desir in June for the Shoulder. He denies any injections for the shoulder. Follow Up of Pain of left knee P resenting for Further Evaluation of Left knee Pain. Pain. 4/10 which he describes as aching .Patient states he is taking Naproxen PRN for pain relief. Patient denies any radicular pain. Patient denies any numbness or tingling. Patient states his pain aggravated by weight bearing activities. Patient states his pain alleviated by medication and rest. right knee pain Patient is a 62 year old male here today FU on his BL knee pain which he rates 6/10 today. He denies any other symptoms. He reports receiving a Cortisone injection 10/13/17 with relief and would like more today. 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 He states that in the morning his fingers swell and make it very difficult to bend them. He rates his pain at 7/10. He denies numbness or tingling. He denies radiating pain. B/L knee pain Patient is a 61 year old male C/O B/L knee pain with the left being worse. Patient had previous injections on 05/26/17 and states he had an 85% improvement for 4 weeks. He states that his pain is 7/10 and describes his symptoms as piercing,dull, burning, sharp, and achy. He states his knees have been locking. He states that the painis radiating up and down his legs. bilateral knee pain Patient is a 61 year old male here for follow up of bilateral knee pain. Pain level today is a 8/10 and is described as sharp and aching. Patient denies any numbness, tingling or radicular pain. Pain is aggravated by prolonged walking and standing. Patient does report a locking, popping and giving away sensation. Patient is taking Tylenol for pain relief. At patients last office visit he was given bilateral cortisone injections, he reports 90% relief from these. Bilateral OA knees A 61 year old male is here today following up on his OA of both knees. Patient is requesting more injections today. Patient is having to wait on surgery due to his work schedule. Patient rates his pain from 2-7/10. Patient denies numbness or tingling. Patient denies radiating pain. Patient takes Tylenol as needed for pain. Follow Up of Primary Osteoarthritis bilateral knee The symptoms are reported as being mild. PAtient is a 60 year old male presenting for follow up post injection of his bilateral knees. DOI: 09/09/16. He states his severity level is 4/10 and varies. He denies any numbness. He denies any radicular pain. He states he still has the popping and clicking sensation. HE states after his injections he had bruising appear medially and laterally on his right knee. He denies any accident or injury. Follow Up of bilateral knee pain This patient presents the office today regarding his knees. The patient has had evidence of osteoarthritis. Both knees are causing him pain, soreness and discomfort. The injections only provide him with temporary relief. He describes his pain as an 8/10. No numbness and tingling in his no reading pain. The patient is continuing to have soreness, pain and discomfort, as well as a limitation with his normal activity. Generic This patient pre sents the office today regarding his knees. The patient has had evidence of osteoarthritis. Both knees are causing him pain, soreness and discomfort. The injections only provide him with temporary relief. He describes his pain as an 8/10. No numbness and tingling in his no reading pain. The patient is continuing to have soreness, pain and discomfort, as well as a limitation with his normal activity. Generic This patient pre sents to the office today for followup regarding his bilateral knee osteoarthritis. The symptoms are continuing to cause him problems with pain and soreness and discomfort. The injection is done last visit have provided him with some relief. Please continued to have a lot of soreness pain and discomfort. He gets a lot of grinding and catching and popping and is concerned about having his knee gives out on him. Generic This patient pre sents the office today known to my practice. He has bilateral osteoarthritis. He is having a Tyndall of knee pain and soreness and discomfort. The patient began a new job and is unable to be off for total knee replacements yet. The last injections were performed in August. He would like additional injections at this time. Generic This patient is a 59-year-old male presents the office today having bilateral knee pain. The symptoms began severe midportion of the month the patient apparently was tripped up to [place] was walking through the formal hands and that seemed to cause him pain this or discomfort. He has a long history however of sore knees. This had previous torn meniscus previous surgery has been on anti-inflammatory and also has had some injections in the past. None of which provided with any long-term relief. And he has a known history of osteoarthritis and has been told in the past and these have a knee replacement form. He takes Lortabs for pain from a long time ago his last prescription was given 3 years ago and that seemed to provide with relief. Functional Status Date Functional Assessmen t Pain Score 9/10 Instructions Date Instruction Additional Infor madina Lifestyle education regarding di et Related to Obesity, unspecified Lifestyle education regarding di et Related to Obesity, unspecified Lifestyle education regarding di et Related to Overweight Lifestyle education regarding di et Related to Overweight Lifestyle education regarding di et Related to Overweight Patient presents 6 w eeks s/p TSR. He states he doing very well and has very little pain. He is currently in physical therapy where he is making good progression in his range of motion. He has no pain with range of motion. His incision remained clean dry and intact. X-rays today demonstrate good alignment of the hardware. We discussed that he may progress his therapy and increase his range of motion. He should continue with the splint. A prescription with detailed instruction was written today. All his questions are answered. We'll have her follow up in 4 weeks or sooner if any questions or concerns. Related to Other specific joint derangement of right shoulder The patient presents for a four-week followup status post right shoulder arthroplasty. He states he is doing well. He has very minimal pain. His incision is well-healed. He has no pain to palpation. He is currently going to physical therapy once a week. We discussed that he may increase physical therapy twice a week. He may increase his range of motion exercises and therapy. No greater than 30 of external rotation and he may begin with passive flexion. We discussed these to remain in a sling. We will have him follow up in 2 weeks or sooner if any questions or concerns.There is a need for x-rays on followup. Related to Primary osteoarthritis of right shoulder Lifestyle education regarding di et Related to Obesity, unspecified The patient is s/p f or right total shoulder arthoplasty. He is 2 weeks out from surgery. He is doing quite well following the surgery. He is keeping up with therapy and a sling for stabilization. We reviewed his X-rays today which looked good. His sutures were absorbable. Steri-strips were applied today. We discussed inflammation phase of healing that would take 3-4 months. We discussed the use of splinting for comfort and forceful repetitive grasping and pinching activities of the right hand. We discussed custom molded splint and was instructed in its use and a prescription was written today. We discussed medications used. We discussed therapy improvement with motion. He was instructed in stretching exercises, scar mobilization and gentle range of motion exercises. He may gradually increase her activities as tolerated. We discussed the improvement in therapy for work in motion and a new prescription with specific instruction was written today. He was inquiring about his ability for driving and we discussed this at length. I am happy to see him back in 3-4 weeks for a re-check or sooner with any concerns. Related to Primary osteoarthritis of right shoulder Giving encouragement to exercise Related to Obesity, unspecified Lifestyle education regarding di et Related to Obesity, unspecified We reviewed his x-ra ys and MRI that demonstrate evidence of an intact rotator cuff with some severe osteoarthritis changes with joint narrowing and very mild posterior wear of the glenoid. There is thinning of the supraspinatus without evidence of a full thickness tear. Related to Primary osteoarthritis of right shoulder Lifestyle education regarding di et Related to Obesity, unspecified Lifestyle education regarding di et Related to Obesity, unspecified The patient's most r ecent x-rays with him from 12/28/18 which show 4 views of the right shoulder. These images show moderate osteophyte arthritis with significant joint space narrowing of the collateral humeral joint with inferior humeral head and glenoid bone spurs or severe osteoarthritis with [id number] involvement of the right a.c. joint with significant spurring and type II acromion noted minimal clearance between the acromion and humeral head.Patient has smoked a limited range of motion secondary to pain and a bony impingement. He is tried activity modification and anti-inflammatory use. I recommend proceeding with an injection into the right shoulder today. The patient was in agreement with this planSteroid Injection Right shoulder The injection consent form outlining the proposed procedure, risks and complications as well as alternatives was reviewed. After a thorough discussion regarding these treatment options, a mutual decision was made to proceed with a right shoulder glenohumeral corticosteroid injection. Consents were signed and all questions were answered to the patient's satisfaction and understanding. The right posterior shoulder was cleansed with alcohol and povidone-iodine, ethyl chloride was used for local topical anesthesia. Using sterile technique the injection was administered through the posterior portal of the right shoulder without resistance. The patient tolerated the procedure well and the site was cleansed with alcohol and a sterile bandage was applied. The knee was taken through a range of motion several times to distribute the medication. The patient was given instructions regarding icing and activity modification for 48-72 hours post-injection. The patient was instructed not to overuse the joint and rest for 48-72 hours. Do not resume normal exercise or physical therapy for 48-72 hours. Ice the joint for the next 48 hours. The patient was educated on signs of infection (swelling, fever, increasing pain) and was instructed to contact the office if any of these signs develop. I reminded the patient to watch his glucose closely from the injection for an increases. I have personally informed and discussed with the patient non-opioid alternatives for the treatment of pain, as well as the advantages and disadvantages of such alternatives, and the patient has received a copy of the pamphlet provided by the Department of Health.i will see him back in the office in approximately 6 months. Related to Primary osteoarthritis of right shoulder Lifestyle education regarding di et Related to Obesity, unspecified I also had a long co nversation with the patient and his regarding his weight. His current BMI is 45.9 at 320 pounds, 5 foot 10. He hasn't had success with weight loss in the past trying dieting that was short-lived. I did recommend trying ITG diet plan. The patient is interested in pursuing this. I discussed that prior to considering surgery his target weight would be 175 pounds putting him at 39.5 BMI. Discussed this is for his overall well-being, rehabilitation, and would improve the life of the implant.Patient will return in 2 weeks for evaluation of his right shoulder. Related to Obesity, unspecified The patient also has severe osteoarthritis of the left knee. He has responded to steroid injections and naproxen in the past. Again he has not had a steroid injection for the last 3 months. I recommend trying a repeat injection of the left knee today.Steroid Injection Left kneeThe injection consent form outlining the proposed procedure, risks and complications as well as alternatives was reviewed. After a thorough discussion regarding these treatment options, a mutual decision was made to proceed with a left knee corticosteroid injection. Consents were signed and all questions were answered to the patient's satisfaction and understanding. The left knee was cleansed with alcohol and povidone-iodine, ethyl chloride was used for local topical anesthesia. Using sterile technique the injection was administered through the lateral suprapatellar portal of the left knee without resistance. The patient tolerated the procedure well and the site was cleansed with alcohol and a sterile bandage was applied. The knee was taken through a range of motion several times to distribute the medication. The patient was given instructions regarding icing and activity modification for 48-72 hours post-injection. The patient was instructed not to overuse the joint and rest for 48-72 hours. Do not resume normal exercise or physical therapy for 48-72 hours. Ice the joint for the next 48 hours. The patient was educated on signs of infection (swelling, fever, increasing pain) and was instructed to contact the office if any of these signs develop. Related to Primary osteoarthritis of left knee Review of patient's most recent x-rays from 12/28/2018 shows 5 views bilateral knees, AP, PA, lateral and sunrise. These images show severe [id number] osteoarthritis of bilateral knees with tricompartmental wear. Bone spurring noted in the bilateral medial compartments as well as severe joint space narrowing of the patellofemoral joints with slight lateral tilting bilaterally. Varus alignment of both knees large posterior osteophytes noted.Patient has severe osteoarthritis of the right knee that has responded to steroid injections and naproxen in the past. He is not had a steroid injection for the last 3 months. He would like to try a repeat injection of steroid into the right knee.Steroid Injection Right kneeThe injection consent form outlining the proposed procedure, risks and complications as well as alternatives was reviewed. After a thorough discussion regarding these treatment options, a mutual decision was made to proceed with a right knee corticosteroid injection. Consents were signed and all questions were answered to the patient's satisfaction and understanding. The right knee was cleansed with alcohol and povidone-iodine, ethyl chloride was used for local topical anesthesia. Using sterile technique the injection was administered through the lateral suprapatellar portal of the right knee without resistance. The patient tolerated the procedure well and the site was cleansed with alcohol and a sterile bandage was applied. The knee was taken through a range of motion several times to distribute the medication. The patient was given instructions regarding icing and activity modification for 48-72 hours post-injection. The patient was instructed not to overuse the joint and rest for 48-72 hours. Do not resume normal exercise or physical therapy for 48-72 hours. Ice the joint for the next 48 hours. The patient was educated on signs of infection (swelling, fever, increasing pain) and was instructed to contact the office if any of these signs develop. Patient is a diabetic and I did recommend watching his blood sugars for any fluctuations over the next several days and to report to the hospital if he has any difficulty with this. He is tolerated bilateral steroid injections in the past without adverse event.More than 25 minutes of [id number] consultation was spent with the patient today in the office discussing treatment options, expectations, risks, benefits, and alternatives. All questions were answered to the patient's satisfaction and the patient was in agreement with the above plan. Related to Primary osteoarthritis of right knee I also had a long co nversation with the patient and his regarding his weight. His current BMI is 45.9 at 320 pounds, 5 foot 10. He hasn't had success with weight loss in the past trying dieting that was short-lived. I did recommend trying ITG diet plan. The patient is interested in pursuing this. I discussed that prior to considering surgery his target weight would be 175 pounds putting him at 39.5 BMI. Discussed this is for his overall well-being, rehabilitation, and would improve the life of the implant.Patient will return in 2 weeks for evaluation of his right shoulder. Related to Acute pain of right knee Lifestyle education regarding di et Related to Obesity, unspecified I reviewed the x-ray s with the patient and he has severe osteoarthritic changes and degenerative changes. The possibility of a rotator cuff arthropathy was also discussed. Because he was a diabetic I am somewhat hesitant inject all 3 joints. And the patient will return next week for possible shoulder injection. Related to Right shoulder pain, unspecified chronicity I reviewed the x-ray s and pathology with the patient and discussed alternatives of treatment. The patient is aware he will require a knee replacement at some point in the future but he is not prepared to do it for least 3 months. The left knee joint was injected with 1cc of 40mg Depo Medrol.Fu 1 week Related to Primary osteoarthritis of left knee I reviewed the x-ray s and pathology with the patient and discussed alternatives of treatment. The patient is aware he will require a knee replacement at some point in the future but he is not prepared to do it for least 3 months. The Right knee joint was injected with 1cc of 40mg Depo Medrol.Fu 1 week Related to Primary osteoarthritis of right knee Lifestyle education regarding di et Related to Obesity, unspecified Discussed the pathol ogy.Patient is doing well.I will prescribe the patient pensaid and vimovo.I will perform bilateral 2 in 1 injections for bilateral knees.Injections were administered.Follow up PRN. Related to Osteoarthritis of knees, bilateral Lifestyle education regarding di et Related to Obesity, unspecified Discussed the pathol ogy.I have recommended this point the patient is on anti-inflammatories we'll discuss other treatment optionsButcher to see me in about 3 weeks will see a works Related to Trigger finger, left middle finger Lifestyle education regarding di et Related to Obesity, unspecified Discuss the patholog y with the patient.At this point the patient wishes to proceed with injections injection of both left and right knees were administered today without problemsI've given him a prescription for oswald Ivonneurn to see me to 3 weeks Related to Primary osteoarthritis of left knee Lifestyle education regarding di et Related to Obesity, unspecified Discussed the pathol ogy.The patient at this point is doing okay he will return to see me in a month to reassessWe can discuss further treatment choices at next visit. Related to Osteoarthritis of knees, bilateral Lifestyle education regarding di et Related to Obesity, unspecified Discussed the pathol ogy.We have discussed treatment options at this point we've elected to undergo injections in both knees, which were administered today without problemsSee him back on a when necessary basis Related to Osteoarthritis of knees, bilateral Lifestyle education regarding di et Related to Obesity, unspecified Discuss the patholog y with the patient.At this point the patient is a candidate for knee replacement. We've discussed that in detail.The patient will come in sometime in November he wants to have his knee replaced some time in this summer as he will have time off work, both into his schedule. At that time. Related to Osteoarthritis of knees, bilateral Lifestyle education regarding di et Related to Obesity, unspecified Discussed the pathol ogy.The patient is a candidate for total knee replacement would like to get it done sometime in the early part of the summerIn the interim period of time I've injected both left and right knee to provide him with relief and allow him to continue to workI will see him in 6 weeks or so we can see him while his injections have lasted and we'll discuss total knee replacement with him at that time. Related to Osteoarthritis of knees, bilateral Lifestyle education regarding di et Related to Obesity, unspecified Discussed the pathol ogy.Injection into both left and right knee were administered today the patient understands this a temporary Band-Aid for him.He wishes to get scheduled for a knee replacement on the right as that is the most symptomatic.We discussed the procedure the postoperative course the risks associated with surgery to be scheduled in the near future. Related to Osteoarthritis of knees, bilateral Lifestyle education regarding di et Related to Obesity, unspecified Discuss the patholog y with the patient.At this point I have recommended that the patient consider knee total joint replacement bilaterally.The patient is going to consider any need to work about with his employer.I have no problem reinjecting this patient and keep him going as long as able to function in a normal manner.If however he can't function in a normal manner with the injections and I do believe it's important to move forward and hopefully resolve his symptoms. Related to Osteoarthritis of knees, bilateral Lifestyle education regarding di et Related to Obesity, unspecified Discussed the pathol ogy.The patient certainly is a candidate for knee replacement however he is unable to do that at this point.We discussed treatment options and we've elected to undergo an injection in both left and right knee were performedThe patient had a injection performed without difficulty or problems to followup with us on a when necessary basis Related to Osteoarthritis of knees, bilateral Lifestyle education regarding di et Related to Obesity, unspecified Lifestyle education regarding di et Related to Obesity, unspecified Discuss the patholog y with the patient.The patient is a candidate for total knee replacement and we discussed that.He just started a new job. Doesn't feel he is ready to have that done at this pointWe've offered him other options including injections of both knees and he has opted for that.Injection of both left and right knee were measured without difficulty or problems.I have provided him with 40 tablets of Lortab's to assist him in the interim period of time.He will return to see us in 2-3 months we can rediscuss with him and hopefully by then he'll have a work time available for having this is a procedure performed. Related to Osteoarthritis of knees, bilateral Lifestyle education regarding di et Related to Obesity, unspecified Assessments Type Assessment Date assessment Acute pain of left knee 022 assessment Acute pain of right knee 2021 assessment Osteoarthritis of knees, bilater al assessment Unilateral primary osteoarthriti s, left knee Patient Care Teams Name Effective Dates (start - stop) Status Members No Information
--- OUTSIDE RECORDS SUMMARY | 2025-03-11 09:45 | XMS_ITS | Encounter Summary ---
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 Never 11/25/2024 Q2: How many drinks containi ng alcohol do you have on a typical day when you are drinking? Patient does not drink Q3: How often do you have si x or more drinks on one occasion? Never 11/25/2024 Abuse Screen Answer Date Recorded Feels Unsafe at Home or Work/School no 11/25/2024 Feels Threatened by Someone no 10/30 Does Anyone Try to Keep You From Having Contact with Others or Doing Things Outside Your Home? no 11/25/2024 Physical Signs of Abuse Present no 11/25/2024 Housing Stability Answer Date Recorded Current Living Arrangements home 10/30 Potentially Unsafe Housing Conditions Not on monet e 11/25/2024 Disabilities Answer Date Recorded Difficulty Concentrating, Remembering or Making Decisions no 11/25/2024 Difficulty Managing Errands Independently no 11/25/2024 Sex and Gender Information Value Date Recorded Sex Assigned at Not on file Legal Sex Male 2:17 PM EDT Gender Identity Not on file Sexual Orientation Not on file documented as of this encounter Last Filed Vital Signs Vital Sign Reading Time Taken Comments Blood Pressure 146/53 03/11/2025 10:41 AM EDT Pulse 61 03/11/2025 10:41 AM EDT Temperature - - Respiratory Rate - - Oxygen Saturation - - Inhaled Oxygen Concentration - - Weight 137 kg (302 lb 11.2 oz) 03/11/2025 10:41 AM EDT Height 180.3 cm (5' 11 ) 03/11/2025 10:41 AM EDT Body Mass Index 42.22 03/11/2025 10:41 AM EDT documented in this encounter Progress Notes * Russell Deyr MD - 03/11/2025 10:45 AM EDTAssociated Problem(s): 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 Continue current treatment regimen. Dietary sodium restriction. Cardiac status will be reassessed in 3 months. Continue aspirin 81 mg once a day. Brilinta 90 mg twice a day. The patient will continue dual antiplatelet therapy for 1 year. Imdur 30 mg once a day. * Russell Dyer MD - 03/11/2025 10:45 AM EDTAssociated Problem(s): Hyperlipidemia LDL goal <70 Lipid abnormalities are stable Plan: Continue same medication/s without change. Discussed medication dosage, use, side effects, and goals of treatment in detail. Counseled patient on lifestyle modifications to help control hyperlipidemia. Advised patient to exercise for 150 minutes weekly. (30 minute brisk walk, 5 days a week for example) Patient Treatment Goals: LDL goal is less than 55 Followup in 3 months. Patient having lots of muscle cramps and wants to lower Lipitor , will reduce it to 40 mg daily. * Russell Dyer MD - 03/11/2025 10:45 AM EDTAssociated Problem(s): Benign essential hypertension Hypertension is stable and controlled. BP at home average less then 130's. Continue current treatment regimen. Medication changes per orders. Weight loss. Ambulatory blood pressure monitoring. Blood pressure will be reassessed in 3 months. Continue lisinopril 20 mg once a day/50 mg twice a day. * Russell Dyer MD - 03/11/2025 10:45 AM EDTAssociated Problem(s): Chronic venous insufficiency Continue wearing compression socks 20 to 30 mmHg preferably thigh-high if not knee-high to reduce pressure of the superficial veins causing discomfort and swelling, when not wearing compression sockswill recommend keep legs elevated above the waist line on pillow or resurface to reduce the pressure of the lower extremity venous system. Recommend doing regular exercise and weight reduction weightreduction that will decrease the pressure of the deep system and help in venous return that reducesswelling and edema in the lower extremities. * Raya Brock - 03/11/2025 10:45 AM EDTAddended by: RAYA BROCK on: 05/30/2025 01:22 PM Modules accepted: Orders * Russell Dyer MD - 03/11/2025 10:45 AM EDT Images from the original note were not included. Cardiology Follow-Up Note Name: Breezy Goddard : 1955 PCP: Jayla Ragland, [employer] Date: 03/11/2025 Department: [facility] [address] [facility] [address] [facility] [id number] Chief Complaint Patient presents with Hypertension Hyperlipidemia Coronary Artery Disease Problem list: Coronary artery disease Cath 11/22/2024 Stent to LAD Cardiac Catheterization/Vascular Study (11/25/2024 16:27) Hypertension Adult Transthoracic Echo Complete W/ Cont if Necessary Per Protocol (12/24/2024 11:45) EF 55.5% with left ventricular hypertrophy. Valves okay. Hyperlipidemia Diabetes mellitus type 2 PAD (previous diagnosed at another provider office?) Duplex Lower Extremity Art / Grafts - Bilateral CAR (12/24/2024 10:26) normal SUHAIL bilaterally with no significant stenosis in the arterial duplex examination. Chronic venous insufficiency Venous w Reflux Lower Extremity - Bilateral CAR (12/24/2024 10:26) negative for DVT, positive for deep reflux, positive for right to left GSV pathological reflux. Subjective History of Present Illness Breezy Goddard is a 69 y.o. male who presents today for 3-month follow-up. Patient is here forfollow-up on test results. Denies any chest pain or shortness of breath. Patient states HgA1C runs less then 5.5. Past Medical History: Diagnosis Date Diabetes mellitus Hypertension PAD (peripheral artery disease) Past Surgical History: Procedure Laterality Date CARDIAC CATHETERIZATION N/A 11/25/2024 Procedure: Left Heart Cath; Surgeon: Russell Dyer MD; Location: [facility]; Service: Cardiovascular; Laterality: N/A; KNEE SURGERY Right SHOULDER SURGERY Right UMBILICAL HERNIA REPAIR Current Outpatient Medications: allopurinol (ZYLOPRIM) 300 MG tablet, Take 1 tablet by mouth Daily. (Patient taking differently: Take 1 tablet by mouth Daily.), Disp: , Rfl: aspirin 81 MG EC tablet, Take 1 tablet by mouth Daily., Disp: , Rfl: atorvastatin (LIPITOR) 80 MG tablet, Take 1 tablet by mouth Daily., Disp: 90 tablet, Rfl: 1 glipizide (GLUCOTROL) 5 MG tablet, Take 1 tablet by mouth Every 12 (Twelve) Hours., Disp: , Rfl: Ppikrjndtxr-Ouzgndizv-Qeq C-Mn (GLUCOSAMINE 1500 COMPLEX PO), Take 1 tablet by mouth Daily., Disp: , Rfl: lisinopril (PRINIVIL,ZESTRIL) 10 MG tablet, Take 1.5 tablets by mouth Every 12 (Twelve) Hours., Disp: , Rfl: lisinopril (PRINIVIL,ZESTRIL) 20 MG tablet, Take 1 tablet by mouth Daily., Disp: , Rfl: metoprolol succinate XL (TOPROL-XL) 25 MG 24 hr tablet, Take 1 tablet by mouth Daily., Disp: 90 tablet, Rfl: 1 multivitamin with minerals tablet tablet, Take 1 tablet by mouth Daily., Disp: , Rfl: nitroglycerin (NITROSTAT) 0.4 MG SL tablet, Dissolve 1 tablet under the tongue as needed for angina(chest pain), may repeat every 5 minutes for up three doses (15 minutes), Disp: 100 tablet, Rfl: 1 [place]-3 Fatty Acids (OMEGA 3 PO), Take 1 tablet by mouth Daily., Disp: , Rfl: sitaGLIPtin-metFORMIN (Janumet) 50-1000 MG per tablet, Take 1 tablet by mouth 2 (Two) Times a Day With Meals., Disp: , Rfl: ticagrelor (Brilinta) 90 MG tablet tablet, Take 1 tablet by mouth Every 12 (Twelve) Hours., Disp: 180 each, Rfl: 1 vitamin B-12 (CYANOCOBALAMIN) 1000 MCG tablet, Take 1 tablet by mouth Daily., Disp: , Rfl: Objective Vital Signs: BP 146/53 (BP Location: Right arm, Patient Position: Sitting) Pulse 61 Ht 180.3 cm (71 ) Wt (!) 137 kg (302 lb 11.2 oz) BMI 42.22 kg/m?? Estimated body mass index is 42.22 kg/m?? as calculated from the following: Height as of this encounter: 180.3 cm (71 ). Weight as of this encounter: 137 kg (302 lb 11.2 oz). Cardiovascular: PMI at left midclavicular line. Normal rate. Regular rhythm. Normal S1. Normal S2. Murmurs: There is no murmur. No gallop. No click. No rub. Pulses: Intact distal pulses. Edema: Peripheral edema absent. 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 Continue current treatment regimen. Dietary sodium restriction. Cardiac status will be reassessed in 3 months. Continue aspirin 81 mg once a day. Brilinta 90 mg twice a day. The patient will continue dual antiplatelet therapy for 1 year. Imdur 30 mg once a day. Hyperlipidemia LDL goal <70 Lipid abnormalities are stable Plan: Continue same medication/s without change. Discussed medication dosage, use, side effects, and goals of treatment in detail. Counseled patient on lifestyle modifications to help control hyperlipidemia. Advised patient to exercise for 150 minutes weekly. (30 minute brisk walk, 5 days a week for example) Patient Treatment Goals: LDL goal is less than 55 Followup in 3 months. Patient having lots of muscle cramps and wants to lower Lipitor , will reduce it to 40 mg daily. Benign essential hypertension Hypertension is stable and controlled. BP at home average less then 130's. Continue current treatment regimen. Medication changes per orders. Weight loss. Ambulatory blood pressure monitoring. Blood pressure will be reassessed in 3 months. Continue lisinopril 20 mg once a day/50 mg twice a day. Chronic venous insufficiency Continue wearing compression socks 20 to 30 mmHg preferably thigh-high if not knee-high to reduce pressure of the superficial veins causing discomfort and swelling, when not wearing compression sockswill recommend keep legs elevated above the waist line on pillow or resurface to reduce the pressure of the lower extremity venous system. Recommend doing regular exercise and weight reduction weightreduction that will decrease the pressure of the deep system and help in venous return that reducesswelling and edema in the lower extremities. Advised to continue current cardiac medications. Please notify of any issues. Discussed with the patient compliance with medical management and follow-up. Follow Up Return in about 3 months (around 06/11/2025). Call if you have any significant symptoms or go to the [facility] [place] Emergency room if possible. Russell Dyer MD, [facility]. [place] [facility] Part of this note may be an electronic database design analyst/translation of spoken language to printed textusing the ScoreStreamation System. 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 Hyperlipidemia LDL goal <70 Benign essential hypertension Chronic venous insufficiency Expected: 04/10/2025 (Approximate), Expires: 03/10/2026 documented as of this encounter Results * CBC & Differential (05/30/2025 1:25 PM EDT) Blood Russell Dyer MD LAB BLOOD ORDERABLES Final Resu lt [facility] * Basic Metabolic Panel (05/29/2025) Blood Russell Dyer MD LAB BLOOD ORDERABLES Final Resu lt Performing Organization Address City/[facility] Co de Phone Number [facility] documented in this encounter Visit Diagnoses Diagnosis 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
--- OUTSIDE RECORDS SUMMARY | 2025-06-11 10:30 | XMS_ITS | Encounter Summary ---
Author Organization [facility] Address [address] [place] [address] Care Team Providers Care Certified Addiction Counselor Name Role Phone Jayla Ragland APRN Primary Care Provid er Reason for Visit * Reason Comments Hypertension Hyperlipidemia Encounter Details Date Type Department Care Team (Latest Contact Info) Description 06/11/2025 10:30 AM EST Office Visit [facility] [address] [facility] [address], [place] [address] Russell Dyer MD [address] [facility] [address] [place] [id number] Coronary artery disease involving blue [place] coronary artery of blue [place] heart without angina pectoris (Primary Dx); Benign essential hypertension; Hyperlipidemia LDL goal <70; Chronic venous insufficiency Social History Tobacco Use Types Packs/Day Years Used Date Smoking Tobacco: Former Cigarettes Q uit: 2002 Smokeless Tobacco: Never Alcohol Use Standard Drinks/Week Comments Not Currently [...] Sign Reading Time Taken Comments Blood Pressure 137/60 06/11/2025 10:22 AM EST Pulse 66 06/11/2025 10:22 AM EST Temperature - - Respiratory Rate - - Oxygen Saturation - - Inhaled Oxygen Concentration - - Weight 137 kg (301 lb) 06/11/2025 10:22 AM EST Height 180.3 cm (5' 11 ) 06/11/2025 10:22 AM EST Body Mass Index 41.98 06/11/2025 10:22 AM EST documented in this encounter Progress Notes * Russell Dyer MD - 06/11/2025 10:30 AM ESTAssociated Problem(s): Coronary artery disease involving blue [place] coronary artery with unstable angina pectoris Coronary Artery Disease (OPTIONAL): Coronary artery disease is stable. Continue current treatment regimen. Medication changes per orders. Dietary sodium restriction. Weight loss. Cardiac status will be reassessed in 3 months. Patient wants to do knee surgery and had Jell shots and did not help. * Russell Dyer MD - 06/11/2025 10:30 AM ESTAssociated Problem(s): Benign essential hypertension Hypertension is stable and controlled. BP at home average less then 130's. Continue current treatment regimen. Medication changes per orders. Weight loss. Ambulatory blood pressure monitoring. Blood pressure will be reassessed in 3 months. Continue lisinopril 20 mg once a day/50 mg twice a day. * Russell Dyer MD - 06/11/2025 10:30 AM ESTAssociated Problem(s): Hyperlipidemia LDL goal <70 Lipid abnormalities [...] Patient having lots of muscle cramps and unable to tolerate statin. Repatha 140 sc every 2 wks. * Russell Dyer MD - 06/11/2025 10:30 AM ESTAssociated Problem(s): Chronic venous insufficiency Continue wearing compression [...] and edema in the lower extremities. * Naheed Sotomayor RegSched Rep - 06/11/2025 10:30 AM ESTAddended by: NAHEED SOTOMAYOR on: 06/11/2025 11:10 AM Modules accepted: Orders * Russell Dyer MD - 06/11/2025 10:30 AM EST Images from the original note were not included. Cardiology Follow-Up Note Name: Breezy Goddard : 1955 PCP: Jayla Ragland, BLAYNE Date: 03/11/2025 Department: [facility] [address] [facility] [address] [facility] [id number] Chief Complaint Patient presents with Hypertension Hyperlipidemia Problem list: Coronary artery disease Cath 11/22/2024 [...] 69 y.o. male who presents today for follow-up. Patient is here for follow-up on test results. Denies any chest pain or increase in shortness of breath, limited in activity due to bad knees. Patient states HgA1C runs less then 5.5. Past Medical History: Diagnosis Date Diabetes mellitus Hypertension PAD (peripheral artery disease) Past Surgical History: Procedure Laterality Date CARDIAC CATHETERIZATION N/A 11/25/2024 Procedure: Left Heart Cath; Surgeon: Russell Dyer MD; [facility]; Service: Cardiovascular; Laterality: N/A; KNEE SURGERY Right SHOULDER SURGERY Right UMBILICAL HERNIA REPAIR Current Outpatient Medications: allopurinol (ZYLOPRIM) 300 MG tablet, Take 1 tablet by mouth Daily. (Patient taking differently: Take 1 tablet by mouth Daily.), Disp: , Rfl: aspirin 81 MG EC tablet, Take 1 tablet by mouth Daily., Disp: , Rfl: glipizide (GLUCOTROL) 5 MG tablet, Take 1 tablet by mouth Every 12 (Twelve) Hours., Disp: , Rfl: Iycbtorernt-Wrggkojzl-Ttm C-Mn (GLUCOSAMINE 1500 COMPLEX PO), Take 1 tablet by mouth Daily., Disp: , Rfl: lisinopril (PRINIVIL,ZESTRIL) 10 MG tablet, Take 1.5 tablets by mouth Every 12 (Twelve) Hours., Disp: , Rfl: lisinopril (PRINIVIL,ZESTRIL) 20 MG tablet, Take 1 tablet by mouth Daily., Disp: , Rfl: metoprolol succinate XL (TOPROL-XL) 25 MG 24 hr tablet, Take 1 tablet by mouth once daily, Disp: 90tablet, Rfl: 1 multivitamin with minerals tablet tablet, Take 1 tablet by mouth Daily., Disp: , Rfl: nitroglycerin (NITROSTAT) 0.4 MG SL tablet, Dissolve 1 tablet under the tongue as needed for angina(chest pain), may repeat every 5 minutes for up three doses (15 minutes), Disp: 100 tablet, Rfl: 1 Taylor-3 Fatty Acids (OMEGA 3 PO), Take 1 [...] Disp: , Rfl: Objective Vital Signs: BP 137/60 (BP Location: Right arm, Patient Position: Sitting, Cuff Size: Adult) Pulse 66 Ht 180.3 cm (71 ) Wt (!) 137 kg (301 lb) BMI 41.98 kg/m?? Estimated body mass index is 41.98 kg/m?? as calculated from the following: Height as of this encounter: 180.3 cm (71 ). Weight as of this encounter: 137 kg (301 lb). Cardiovascular: PMI at left midclavicular line. Normal [...] No results found for: INR , PROTIME Labs dated 05/30/2025 BMP normal CBC normal. Labs dated 01/09/2025 LDL 61 triglyceride 110 Labs dated 05/30/2025 BMP normal CBC normal Assessment and Plan Assessment & Plan Coronary artery disease involving blue [place] coronary artery of blue [place] heart without angina pectoris Coronary Artery Disease (OPTIONAL): Coronary artery disease is stable. Continue current treatment regimen. Medication changes per orders. Dietary sodium restriction. Weight loss. Cardiac status will be reassessed in 3 months. Patient wants to do knee surgery and had Jell shots and did not help. Benign essential hypertension Hypertension is stable and controlled. BP at home average less then 130's. Continue current treatment regimen. Medication changes per orders. Weight loss. Ambulatory blood pressure monitoring. Blood pressure will be reassessed in 3 months. Continue lisinopril 20 mg once a day/50 mg twice a day. Hyperlipidemia LDL goal <70 Lipid [...] Patient having lots of muscle cramps and unable to tolerate statin. Repatha 140 sc every 2 wks. Chronic venous insufficiency Continue wearing compression socks [...] Up Return in about 3 months (around 09/11/2025). Call if you have any significant symptoms or go to the [facility] Emergency room if possible. Russell Dyer MD, [facility]. [facility] Part of this note may be an electronic wick tender/translation of spoken language to printed textusing the [employer]ation System. documented in this encounter Plan of Treatment Upcoming Encounters Date Type Department Care Team (Late st Contact Info) Description 09/11/2025 10:30 AM EST Office Visit [facility] [address] [phone] Russell Dyer MD [address] [facility] [address], [place] [address] Scheduled Orders Name Type Priority Associated Diagnoses Orde r Schedule CBC & Differential Lab Panel Routine Coronary artery disease involving blue [place] coronary artery of blue [place] heart without angina pectoris Benign essential hypertension Hyperlipidemia LDL goal <70 Chronic venous insufficiency Expected: 07/11/2025 (Approximate), Expires: 06/11/2026 Lipid Panel Lab Routine Coronary artery disease involving blue [place] coronary artery of blue [place] heart without angina pectoris Benign essential hypertension Hyperlipidemia LDL goal <70 Chronic venous insufficiency Expected: 07/11/2025 (Approximate), Expires: 06/11/2026 Lipoprotein A (LPA) Lab Routine Coronary artery disease involving [place] coronary artery of [place] heart without angina pectoris Benign essential hypertension Hyperlipidemia LDL goal <70 Chronic venous insufficiency Expected: 07/11/2025 (Approximate), Expires: 06/11/2026 Comprehensive Metabolic Panel Lab Routine Coronary artery disease involving [place] coronary artery of blue [place] heart without angina pectoris Benign essential hypertension Hyperlipidemia LDL goal <70 Chronic venous insufficiency Expected: 06/16/2025 (Approximate), Expires: 09/11/2026 documented as of this encounter Visit Diagnoses Diagnosis Coronary artery disease involving [place] coronary artery of [place] heart without angina pectoris- Primary Benign essential hypertension Essential hypertension, benign Hyperlipidemia LDL goal <70 Other and unspecified hyperlipidemia Chronic venous insufficiency Unspecified venous (peripheral) insufficiency documented in this encounter Care Teams Certified Addiction Counselor Relationship Specialty Start Date End Date Jayla Ragland APRN [address] [facility] [address] [place] [id number] PCP - General Family Medicine 01/09/25 documented as of this encounter
--- NOTE | 2025-06-23 08:38 | XR_ITS ---
FINAL REPORT CLINICAL HISTORY: right knee pain FINDINGS: AP, lateral and oblique views of the right knee were obtained. There is no prior exam for comparison. There is no acute osseous abnormality of the right knee. There is tricompartmental degenerative disease. A large joint effusion is noted. There is no acute soft tissue abnormality. IMPRESSION: Large joint effusion. Consider MRI if indicated. Reviewed, Interpreted and Dictated by Shanon Moncada MD Transcribed by Jasmin Darnell Authenticated and [facility]
--- NOTE | 2025-06-23 08:38 | XR_ITS ---
FINAL REPORT CLINICAL HISTORY: left knee pain FINDINGS: AP, lateral and oblique views of the left knee were obtained. There is no prior exam for comparison. There is no acute osseous abnormality of the left knee. Tricompartmental degenerative disease is noted. There is a large joint effusion. No acute soft tissue abnormality. IMPRESSION: Large joint effusion. Consider MRI if indicated. Reviewed, Interpreted and Dictated by Shanon Moncada MD Transcribed by Jasmin Darnell Authenticated and [facility]
--- OUTSIDE RECORDS SUMMARY | 2025-06-23 08:40 | XMS_ITS | Encounter Summary ---
Author Organization [facility] Address [address] [place] [id number] Care Team Providers Care Tobacco Shaker Name Role Phone Jayla Ragland BLAYNE Primary Care Provid er Reason for Visit * Reason Comments Med Refill Encounter Details Date Type Department Care Team (Late st Contact Info) Description 05/19/2025 Refill [facility] [address] [facility] [address] [phone] Shey Arias APRN [address] [facility] [address] [place] [address] Med Refill Social History Tobacco Use Types Packs/Day Years [...] on file documented as of this encounter Miscellaneous Notes * Telephone Encounter - Dulce Maria Cabezas MA - 05/19/2025 11:04 AM EDT Rx Refill Note Requested Prescriptions Pending Prescriptions Disp Refills metoprolol succinate XL (TOPROL-XL) 25 MG 24 hr tablet [Pharmacy Med Name: Metoprolol Succinate ER 25 MG Oral Tablet Extended Release 24 Hour] 90 tablet 0 Sig: Take 1 tablet by mouth once daily Last office visit with prescribing clinician: 03/11/25 Next office visit with prescribing clinician: 06/11/25 Patient passed protocols per willy. Dulce Maria Caebzas MA 05/19/25, 11:04 EDT documented in this encounter Plan of Treatment Upcoming Encounters Date Type Department Care Team (Late st Contact Info) Description 09/11/2025 10:30 AM EST Office Visit [facility] [address] [facility] [address] [place] [phone] Russell Dyer MD [address] [facility] [address] [place] [address] documented as of this encounter Visit Diagnoses Not on filedocumented in this encounter Care Teams Tobacco Shaker Relationship Specialty Start Date End Date Jayla Ragland APRN [address] [facility] [address] [facility] [address] PCP - General Family Medicine 01/09/25 documented as of this encounter
--- OUTSIDE RECORDS SUMMARY | 2025-06-23 08:40 | XMS_ITS | Clinical Summary ---
Author Organization [facility] Address [address] [place] [address] Care Team Providers Care Customer Pricing Manager Name Role Phone Jayla Ragland BLAYNE Primary Care Provid er Allergies No known active allergies Medications glipizide (GLUCOTROL) 5 MG tablet Take 1 tablet by mouth Every 12 (Twelve) Hours. 09/19/19 25 Active allopurinol (ZYLOPRIM) 300 MG tablet Take 1 tablet by mouth Daily. 10/03/19 25 Active lisinopril (PRINIVIL,ZES TRIL) 20 MG tablet Take 1 tablet by mouth Daily. 10/02/19 25 Active lisinopril (PRINIVIL,ZES TRIL) 10 MG tablet Take 1.5 tablets by mouth Every 12 (Twelve) Hours. 09/13/19 25 Active Glucosamine-C hondroit-Vit C-Mn (GLUCOSAMINE 1500 COMPLEX PO) Take 1 tablet by mouth Daily. Active multivitamin with minerals tablet tablet Take 1 tablet by mouth Daily. Active Manor-3 Fatty Acids (OMEGA 3 PO) Take 1 tablet by mouth Daily. Active vitamin B-12 (CYANOCOBALAM IN) 1000 MCG tablet Take 1 tablet by mouth Daily. Active aspirin 81 MG EC tablet Take 1 tablet by mouth Daily. Active nitroglycerin (NITROSTAT) 0.4 MG SL tablet Dissolve 1 tablet under the tongue as needed for angina (chest pain), may repeat every 5 minutes for up three doses (15 minutes) 100 tablet 1 5 5:18 PM EDT 11/26/19 25 Active sitaGLIPtin-m etFORMIN (Janumet) 50-1000 MG per tablet Take 1 tablet by mouth 2 (Two) Times a Day With Meals. Active metoprolol succinate XL (TOPROL-XL) 25 MG 24 hr tablet Take 1 tablet by mouth once daily 90 tablet 1 05/19/20 25 Active Evolocumab (Repatha SureClick) solution auto-injector SureClick injection Inject 1 mL under the skin into the appropriate area as directed Every 14 (Fourteen) Days. 6 mL 06/12/20 25 Active Bempedoic Acid-Ezetimib e (Nexlizet) 180-10 MG tablet Take 1 tablet by mouth Daily. 90 tablet 1 06/18/20 25 Active ticagrelor (BRILINTA) 90 MG tablet tabletIndicat ions:Coronary artery disease involving rappahannock coronary artery of rappahannock heart with unstable angina pectoris,Leoncio gn essential hypertension, Hyperlipidemi a LDL goal <70,Chronic venous insufficiency ,PAD (peripheral artery disease) TAKE 1 TABLET BY MOUTH EVERY 12 HOURS 180 tablet 1 06/23/20 25 Active ticagrelor (Brilinta) 90 MG tablet tabletIndicat ions:Coronary artery disease involving rapp[place]annock coronary artery of rappahannock heart with unstable angina pectoris,Leoncio gn essential hypertension, Hyperlipidemi a LDL goal <70,Chronic venous insufficiency ,PAD (peripheral artery disease) Take 1 tablet by mouth Every 12 (Twelve) Hours. 180 each 1 12/10/19 25 025 Discontinued atorvastatin (LIPITOR) 40 MG tablet Take 1 tablet by mouth Daily. 90 tablet 1 03/12/20 25 025 Discontinued(Si de effects) Hospital, Clinic, or Other Facility Administered Medication Ordered Dose Route Frequency Start Date End Date Status Evolocumab (REPATHA) SureClick injection 140 mgIndications:Coron diya artery disease involving rappahannock coronary artery of rappahannock heart without angina pectoris,Benign essential hypertension,Hyperl ipidemia LDL goal <70,Chronic venous insufficiency 140 mg SC Every 14 Days 06/11/2025 5 Discontinued Active Problems Problem Noted Date Diagnosed Date Coronary artery disease invo lving rappahannock coronary artery with unstable angina pectoris 11/25/2024 Assessment & Plan (06/11/2025 11:07 AM EST): Coronary Artery Disease (OPTIONAL): Coronary artery disease is stable. Continue current treatment regimen. Medication changes per orders. Dietary sodium restriction. Weight loss. Cardiac status will be reassessed in 3 months. Patient wants to do knee surgery and had Jell shots and did not help. Assessment & Plan (03/11/2025 11:00 AM EDT): Coronary Artery Disease (OPTIONAL): Coronary artery disease is stable. Continue current treatment regimen. Dietary sodium restriction. Cardiac status will be reassessed in 3 months. Continue aspirin 81 mg once a day. Brilinta 90 mg twice a day. The patient will continue dual antiplatelet therapy for 1 year. Imdur 30 mg once a day. Assessment & Plan (12/09/2024 10:33 AM EDT): Coronary Artery Disease (OPTIONAL): Coronary artery disease is stable. Recommend seeing purchasing coordinator for evaluation of neck pain. Will do Echocardiogram. Continue current treatment regimen. Dietary sodium restriction. Weight loss. Cardiac status will be reassessed in 3 months. The patient had a Xience drug-eluting stent to the LAD, patient understand fully to continue dual antiplatelet therapy for a year. Patient understand that antiplatelet therapy is less to prevent stent from clotting. We will continue aggressive risk factor modification. The patient had 40 to 50% stenosis of the right coronary artery. Orders: ticagrelor (Brilinta) 90 MG tablet tablet; Take 1 tablet by mouth Every 12 (Twelve) Hours. CBC & Differential; Future Basic Metabolic Panel; Future Lipid Panel; Future Adult Transthoracic Echo Complete W/ Cont if Necessary Per Protocol; Future Angina pectoris 11/22/2024 Assessment & Plan (11/22/2024 11:57 AM EDT): Coronary Artery Disease (OPTIONAL): Coronary artery disease is stable. Continue current treatment regimen. Dietary sodium restriction. Weight loss. Cardiac status will be reassessed at the next regular appointment. The patient has symptoms of class IV angina, symptoms has progressed to being at rest. Will start patient on metoprolol succinate 25 mg once a day, isosorbide mononitrate 30 mg once a day. The patient had abnormal nuclear Cardiolite study, we will proceed with an option of Cardiac catheterization we discussed in detail. Start Aspirin 81 mg daily. Will do TTE. Orders: Adult Transthoracic Echo Complete W/ Cont if Necessary Per Protocol; Future Venous w Reflux Lower Extremity - Bilateral CAR; Future Duplex Lower Extremity Art / Grafts - Bilateral CAR; Future Duplex Carotid Ultrasound CAR; Future Benign essential hypertension 11/22/2024 Assessment & Plan (06/11/2025 11:07 AM EST): Hypertension is stable and controlled. BP at home average less then 130's. Continue current treatment regimen. Medication changes per orders. Weight loss. Ambulatory blood pressure monitoring. Blood pressure will be reassessed in 3 months. Continue lisinopril 20 mg once a day/50 mg twice a day. Assessment & Plan (03/11/2025 11:00 AM EDT): Hypertension is stable and controlled. BP at home average less then 130's. Continue current treatment regimen. Medication changes per orders. Weight loss. Ambulatory blood pressure monitoring. Blood pressure will be reassessed in 3 months. Continue lisinopril 20 mg once a day/50 mg twice a day. Assessment & Plan (12/09/2024 10:33 AM EDT): Hypertension is borderline Dietary sodium restriction. Weight loss. Ambulatory blood pressure monitoring. Blood pressure will be reassessedat the next regular appointment. The patient had tried valsartan in the past and gave him nightmares therefore he stayed on lisinopril. The patient takes lisinopril 20 mg in the morning 50 mg in the evening. Orders: ticagrelor (Brilinta) 90 MG tablet tablet; Take 1 tablet by mouth Every 12 (Twelve) Hours. CBC & Differential; Future Basic Metabolic Panel; Future Lipid Panel; Future Adult Transthoracic Echo Complete W/ Cont if Necessary Per Protocol; Future Assessment & Plan (11/22/2024 11:57 AM EDT): Hypertension is borderline Dietary sodium restriction. Weight loss. Ambulatory blood pressure monitoring. Blood pressure will be reassessedat the next regular appointment. The patient had tried valsartan in the past and gave him nightmares therefore he stayed on lisinopril. The patient takes lisinopril 20 mg in the morning 50 mg in the evening. Orders: Adult Transthoracic Echo Complete W/ Cont if Necessary Per Protocol; Future Venous w Reflux Lower Extremity - Bilateral CAR; Future Duplex Lower Extremity Art / Grafts - Bilateral CAR; Future Duplex Carotid Ultrasound CAR; Future Hyperlipidemia LDL goal <70 11/22/2024 Assessment & Plan (06/11/2025 11:07 AM EST): Lipid abnormalities are stable Plan: Continue same [...] statin. Repatha 140 sc every 2 wks. Assessment & Plan (03/11/2025 11:00 AM EDT): Lipid abnormalities are stable Plan: Continue same [...] will reduce it to 40 mg daily. Assessment & Plan (12/09/2024 10:33 AM EDT): Lipid abnormalities are stable Plan: Continue same medication/s without change. Discussed medication dosage, use, side effects, and goals of treatment in detail. Counseled patient on lifestyle modifications to help control hyperlipidemia. Advised patient to exercise for 150 minutes weekly. (30 minute brisk walk, 5 days a week for example) Patient Treatment Goals: LDL goal is less than 55 Followup at the next regular appointment. Will start Lipitor 80 mg daily. Orders: ticagrelor (Brilinta) 90 MG tablet tablet; Take 1 tablet by mouth Every 12 (Twelve) Hours. CBC & Differential; Future Basic Metabolic Panel; Future Lipid Panel; Future Adult Transthoracic Echo Complete W/ Cont if Necessary Per Protocol; Future Assessment & Plan (11/22/2024 11:57 AM EDT): Lipid abnormalities are stable Plan: Continue same medication/s without change. Discussed medication dosage, use, side effects, and goals of treatment in detail. Counseled patient on lifestyle modifications to help control hyperlipidemia. Advised patient to exercise for 150 minutes weekly. (30 minute brisk walk, 5 days a week for example) Patient Treatment Goals: LDL goal is less than 55 Followup at the next regular appointment. Will start Lipitor 80 mg daily. Orders: Adult Transthoracic Echo Complete W/ Cont if Necessary Per Protocol; Future Venous w Reflux Lower Extremity - Bilateral CAR; Future Duplex Lower Extremity Art / Grafts - Bilateral CAR; Future Duplex Carotid Ultrasound CAR; Future PAD (peripheral artery disease) 11/22/2024 Assessment & Plan (12/09/2024 10:33 AM EDT): The patient has arterial duplex semination carotid duplex semination both are pending. Orders: ticagrelor (Brilinta) 90 MG tablet tablet; Take 1 tablet by mouth Every 12 (Twelve) Hours. CBC & Differential; Future Basic Metabolic Panel; Future Lipid Panel; Future Adult Transthoracic Echo Complete W/ Cont if Necessary Per Protocol; Future Assessment & Plan (11/22/2024 11:57 AM EDT): Will do arterial duplex lower ext Orders: Adult Transthoracic Echo Complete W/ Cont if Necessary Per Protocol; Future Venous w Reflux Lower Extremity - Bilateral CAR; Future Duplex Lower Extremity Art / Grafts - Bilateral CAR; Future Duplex Carotid Ultrasound CAR; Future Chronic venous insufficiency 11/22/2024 Assessment & Plan (06/11/2025 11:07 AM EST): Continue wearing compression socks 20 to 30 mmHg preferably thigh-high if not knee-high to reduce pressure of the superficial veins causing discomfort and swelling, when not wearing compression socks will recommend keep legs elevated above the waist line on pillow or resurface to reduce the pressure of the lower extremity venous system. Recommend doing regular exercise and weight reduction weight reduction that will decrease the pressure of the deep system and help in venous return that reduces swelling and edema in the lower extremities. Assessment & Plan (03/11/2025 11:00 AM EDT): Continue wearing compression socks 20 to 30 mmHg preferably thigh-high if not knee-high to reduce pressure of the superficial veins causing discomfort and swelling, when not wearing compression socks will recommend keep legs elevated above the waist line on pillow or resurface to reduce the pressure of the lower extremity venous system. Recommend doing regular exercise and weight reduction weight reduction that will decrease the pressure of the deep system and help in venous return that reduces swelling and edema in the lower extremities. Assessment & Plan (12/09/2024 10:33 AM EDT): The venous Doppler examination is pending. Continue wearing compression socks 20 to 30 mmHg preferably thigh-high if not knee-high to reduce pressure of the superficial veins causing discomfort and swelling, when not wearing compression socks will recommend keep legs elevated above the waist line on pillow or resurface to reduce the pressure of the lower extremity venous system. Recommend doing regular exercise and weight reduction weight reduction that will decrease the pressure of the deep system and help in venous return that reduces swelling and edema in the lower extremities. Orders: ticagrelor (Brilinta) 90 MG tablet tablet; Take 1 tablet by mouth Every 12 (Twelve) Hours. CBC & Differential; Future Basic Metabolic Panel; Future Lipid Panel; Future Adult Transthoracic Echo Complete W/ Cont if Necessary Per Protocol; Future Assessment & Plan (11/22/2024 11:57 AM EDT): Venous duplex lower ext. Orders: Duplex Carotid Ultrasound CAR; Future Carotid bruit 11/22/2024 Assessment & Plan (11/22/2024 11:58 AM EDT): Carotid duplex examination Orders: Duplex Carotid Ultrasound CAR; Future Shortness of breath at rest 11/22/2024 Assessment & Plan (11/22/2024 12:07 PM EDT): Orders: Adult Transthoracic Echo Complete W/ Cont if Necessary Per Protocol; Future Venous w Reflux Lower Extremity - Bilateral CAR; Future Duplex Carotid Ultrasound CAR; Future Angina, class IV 11/22/2024 Abnormal cardiovascular function study Abnormal findings on diagnos tic imaging of heart and coronary circulation 11/22/2024 Encounters Date Type Department Care Team Description 06/21/2025 Refill [facility] [address] [place] [address] Russell Dyer MD Med Refill 06/17/2025 Telephone [facility] [address] [place] [address] Russell Dyer MD 06/11/2025 10:30 AM EST Office Visit [facility] [address] [place] [address] Russell Dyer MD Coronary artery disease involving rappahannock coronary artery of rappahannock heart without angina pectoris (Primary Dx); Benign essential hypertension; Hyperlipidemia LDL goal <70; Chronic venous insufficiency 06/11/2025 Telephone [facility] [address] [place] [address] Russell Dyer MD 06/11/2025 Travel 05/19/2025 Refill [facility] [address] [facility] [address] [place] [address] Shey Arias APRN Med Refill from Last 3 Months Social History Tobacco Use Types Packs/Day Years [...] on file Sexual Orientation Not on file Last Filed Vital Signs Vital Sign Reading Time Taken Comments Blood Pressure 137/60 06/11/2025 10:22 AM EST Pulse 66 06/11/2025 10:22 AM EST Temperature 36.3 C (97.3 F) 11/25/2024 2:22 PM EDT Respiratory Rate 15 11/25/2024 4:32 PM EDT Oxygen Saturation 93% 11/25/2024 8:15 PM EDT Inhaled Oxygen Concentration - - Weight 137 kg (301 lb) 06/11/2025 10:22 AM EST Height 180.3 cm (5' 11 ) 06/11/2025 10:22 AM EST Body Mass Index 41.98 06/11/2025 10:22 AM EST Plan of Treatment Upcoming Encounters Date Type Department Care Team (Late st Contact Info) Description 09/11/2025 10:30 AM EST Office Visit [facility] [address], [place] [address] Russell Dyer MD [address] [facility] [address] [place] [address] Health Maintenance Due Date Last Done Comments COVID-19 Vaccine (#1) 11/05/1960 COLOGUARD 11/05/1999 COLON CANCER SCREENING 5 YEAR SIGMOIDOSCOPY 11/05/1999 COLONOSCOPY 11/05/1999 COLORECTAL CANCER SCREENING 11/05/1999 CT COLONOGRAPHY 11/05/1999 FECAL OCCULT BLOOD TEST 11/05/1999 FIT Testing (1 year) 11/05/1999 Pneumococcal Vaccine 50+ (1 of 1 - PCV) 2004 ZOSTER VACCINE (1 of 2) 2004 AAA SCREEN ONCE 11/05/2019 ANNUAL WELLNESS VISIT 11/21/2024 HEPATITIS C SCREENING 11/21/2024 INFLUENZA VACCINE 02/28/2025 LIPID PANEL 01/09/2026 01/09/2025 TDAP/TD VACCINES (2 - Td or Tdap) 05/23/2034 024 Medical Devices Implanted Type Area Ict Systems Test Engineer Device Identifier Shelf Expiration Date Model / Serial / Lot Stnt Cornry Rx Xience/Skypoi nt Rapdxng 3x33mm - [id number] Implanted:Qty : 1 on 11/25/2024 by Russell Dyer MD at [facility] N/A: Coronary BOX VASCULAR 06/19/2027 [id number] / / [id number] Procedures Procedure Name Priority Date/Time Associated Diagnosis Comments CBC AND DIFFERENTIAL Routine 05/30/2025 1:25 PM EDT Coronary artery disease involving rappahannock coronary artery of rappahannock heart with unstable angina pectoris Hyperlipidemia LDL goal <70 Benign essential hypertension Chronic venous insufficiency SCANNED - LABS 05/29/2025 BASIC METABOLIC PANEL Routine 05/29/2025 Coronary artery disease involving rappahannock coronary artery of rappahannock heart with unstable angina pectoris Hyperlipidemia LDL goal <70 Benign essential hypertension Chronic venous insufficiency LIPID PANEL Routine 01/09/2025 12:06 PM EDT Coronary artery disease involving rappahannock coronary artery of rappahannock heart with unstable angina pectoris Benign essential hypertension Hyperlipidemia LDL goal <70 Chronic venous insufficiency PAD (peripheral artery disease) from Last 3 Months or Most Recently Relevant to Health Maintenance Results * CBC & Differential (05/30/2025 1:25 PM EDT) Blood Russell Dyer MD LAB BLOOD ORDERABLES Final Resu lt Performing Organization Address City/[facility] Co de Phone Number [facility] * LABS SCANNED (05/29/2025) us Russell Dyer MD LAB BLOOD ORDERABLES Final Resu lt * Basic Metabolic Panel (05/29/2025) Blood Russell Dyer MD LAB BLOOD ORDERABLES Final Resu lt [facility] * (ABNORMAL) Lipid Panel (01/09/2025 12:06 PM EDT) Total Cholesterol 113 0 - 200 mg/dL 01/09/2025 11:35 PM EDT [facility] Triglycerides 110 0 - 150 mg/dL 01/09/2025 11:35 PM EDT [facility] HDL Cholesterol 32(L) 40 - 60 mg/dL 01/09/2025 11:35 PM EDT [facility] LDL Cholesterol 61 0 - 100 mg/dL 01/09/2025 11:35 PM EDT [facility] VLDL Cholesterol 20 5 - 40 mg/dL 01/09/2025 11:35 PM EDT [facility] LDL/HDL Ratio 1.84 01/09/2025 11:35 PM T [facility] Blood Venipuncture / Unknown 01/09/2025 12:06 PM EDT 01/09/2025 12:06 PM EDT Narrative [facility] - 01/09/2025 11:35 PM EDT Cholesterol Reference Ranges (U.S. Department of Health and Human Services ATP III Classifications) Desirable <200 mg/dL Borderline High 200-239 mg/dL High Risk >240 mg/dL Triglyceride Reference Ranges (U.S. Department of Health and Human Services ATP III Classifications) Normal <150 mg/dL Borderline High 150-199 mg/dL High 200-499 mg/dL Very High >500 mg/dL HDL Reference Ranges (U.S. Department of Health and Human Services ATP III Classifications) Low <40 mg/dl (major risk factor for CHD) High >60 mg/dl ('negative' risk factor for CHD) LDL Reference Ranges (U.S. Department of Health and Human Services ATP III Classifications) Optimal <100 mg/dL Near Optimal 100-129 mg/dL Borderline High 130-159 mg/dL High 160-189 mg/dL Very High >189 mg/dL LDL is calculated using the NIH LDL-C calculation. us Russell Dyer MD LAB BLOOD ORDERABLES Final Resu lt [facility]
[address] [place] [address], from Last 3 Months or Most Recently Relevant to Health Maintenance Insurance [facility] PPO Care Teams Customer Pricing Manager Relationship Specialty Start Date End Date Jayla Ragland APRN [address] [facility] [address] [facility] [place] [address] PCP - General Family Medicine 01/09/25
--- OUTSIDE RECORDS SUMMARY | 2025-06-23 08:40 | XMS_ITS | Encounter Summary ---
Author Organization [facility] Address [address] [place] [id number] Care Team Providers Care Psychology Lecturer Name Role Phone Jayla Ragland LINEMAN Primary Care Provid er Encounter Details Date Type Department Care Team (Late st Contact Info) Description 06/17/2025 Telephone [facility] [address] [facility] [address], [place] [address] Russell Dyer MD [address] [facility] [address], [place] [address] Social History Tobacco Use Types Packs/Day Years [...] encounter Miscellaneous Notes * Telephone Encounter - Shey Arias APRN - 06/18/2025 9:33 AM EST Script sent * Telephone Encounter - Sandra Castaneda MA - 06/17/2025 4:01 PM EST Spoke with patient'w , will try to do the nexlizet. It will need a pa as well but told her I would get up with her once pa is done to see about pricing. * Telephone Encounter - Shey Arias APRN - 06/17/2025 3:38 PM EST Patient cannot tolerate statins so could try Nexlizet or Leqvio. Do we know which would likely be approved? * Telephone Encounter - Sandra Castaneda MA - 06/17/2025 3:33 PM EST The patient's repatha was still too expensive after being approved through insurance. They won't beable to afford the medication and wants to know what should be done instead. documented in this encounter Plan of Treatment Upcoming Encounters Date Type Department Care Team (Late st Contact Info) Description 09/11/2025 10:30 AM EST Office Visit [facility] [address] [facility] [address] [place] [address] Russell Dyer MD [address] [facility] [address] [place] [address] documented as of this encounter Visit Diagnoses Not on filedocumented in this encounter Care Teams Psychology Lecturer Relationship Specialty Start Date End Date Jayla Ragland APRN [address] [facility] [address] [facility] [address] [place] [address] PCP - General Family Medicine 01/09/25 documented as of this encounter
--- OUTSIDE RECORDS SUMMARY | 2025-06-23 08:40 | XMS_ITS | Encounter Summary ---
Author Organization [facility] Address [address] [place] [address] Care Team Providers Care Voltage Regulator Assembler Name Role Phone Jayla Ragland APRN Primary Care Provid er Encounter Details Date Type Department Care Team (Latest Contact Info) Description 06/11/2025 Travel Social History Tobacco Use Types Packs/Day Years [...] on file documented as of this encounter Plan of Treatment Upcoming Encounters Date Type Department Care Team (Late st Contact Info) Description 09/11/2025 10:30 AM EST Office Visit [facility] [address] [facility] [address] [place] [address] Russell Dyer MD [address] [facility] [address] [place] [address] documented as of this encounter Visit Diagnoses Not on filedocumented in this encounter Care Teams Voltage Regulator Assembler Relationship Specialty Start Date End Date Jayla Ragland APRN [address] [facility] [address] [facility] [address] [place] [address] PCP - General Family Medicine 01/09/25 documented as of this encounter
--- OUTSIDE RECORDS SUMMARY | 2025-06-23 08:40 | XMS_ITS | Encounter Summary ---
Author Organization [facility] Address [address] [place] [id number] Care Team Providers Care Electrician Aircraft Name Role Phone Jayla Ragland FRUIT BAR MAKER Primary Care Provid er Encounter Details Date Type Department Care Team (Late st Contact Info) Description 06/11/2025 Telephone [facility] C[facility]IOLOGY [address] [facility] [address] [address] Russell Dyer MD [address] [facility] [address] [address] Social History Tobacco Use Types Packs/Day Years [...] Encounter - Dulce Maria Cabezas MA - 06/12/2025 8:25 AM EST Spoke to patient's to let them know, and to also let them know that it might need a prior authand to have the pharmacy fax us the denial. * Telephone Encounter - Shey Arias APRN - 06/12/2025 8:17 AM EST Sent * Telephone Encounter - Dulce Maria Cabezas MA - 06/11/2025 4:26 PM EST This was ordered as clinic administered. Can we change it? * Telephone Encounter - Naheed Hammer RegSched Rep - 06/11/2025 3:38 PM EST While in Checkout patient inquired about where Repatha prescription was being sent... to which pharmacy on file or to his primary care provider's office and he did not care where? I informed patient we are in clinic and it could be this afternoon or by tomorrow morning before he would be notified. documented in this encounter Plan of Treatment Upcoming Encounters Date Type Department Care Team (Late st Contact Info) Description 09/11/2025 10:30 AM EST Office Visit [facility] [address] [facility] [address] [place] [phone] Russell Dyer MD [address] [facility] [address] [place] [address] documented as of this encounter Visit Diagnoses Not on filedocumented in this encounter Care Teams Electrician Aircraft Relationship Specialty Start Date End Date Jayla Ragland APRN [address] [facility] [address] [place] [address] PCP - General Family Medicine 01/09/25 documented as of this encounter
--- OUTSIDE RECORDS SUMMARY | 2025-06-23 08:40 | XMS_ITS | Patient Health Record ---
Author Organization [facility] Billing Info Address [address] [place] [id number] Care Team Providers Care Customer Contact Sales Associate Name Role Phone VERA SINHA MD Primary Care Provider POLA Jackson Unavailable [phone] Reason For Referral No Information Medications Medication SIG (Take, Route, Fr equency, Duration) Notes Start Date End Date Status Janumet XR 50-500 MG 1 tablet with a bri l Orally Once a day Active GlipiZIDE 5 MG 1 tablet Orally Once a day Active Allopurinol 300 MG 1 tablet Orally Once a day Active Lisinopril 10 MG 1 tablet Orally Once a day Active Social History Tobacco Use: Social History Observation Description Date Details (start date - stop date) Never Smoker NA - NA Tobacco Status: Question Answer Notes Patient is a never smoker Problems Problem Type SNOMED Code ICD Code Onset Dates Problem Status W/U Status Risk Notes Problem 59282202974235 Personal history of other diseases of the digestive system (Z87.19) Active confirmed Problem [id number] History of umbilical hernia repair (Z98.890) Active confirmed He underwent a umbilical hernia repair with mesh. Recently, he noticed something hard in his umbilicus. On exam, it appears to be inspissated sebum. it was easily removed. Daily cleaning with hydrogen peroxide recommended. Also he is to apply Bacitracin ointment. Follow up in two weeks. Plan Of Treatment No Information Insurance Providers Payer Name Payer Address Payer Phone Subscriber Number Group Number Insured Name Patient Relationship to Insured Coverage Start Date Coverage End Date [place] [address] JANESSA BERKOWITZ [id number] Breezy Mckeon Self - patient is the insured Medical (General) History Medical History History ICD Code Diabetes mellitus Hypertension Gout Surgical History Surgery Date(Month/Year) hernia repair gall bladder removal
--- OUTSIDE RECORDS SUMMARY | 2025-06-23 08:40 | XMS_ITS | Encounter Summary ---
Author Organization [facility] Address [address] [place] [id number] Care Team Providers Care Mobile Engineer Name Role Phone Jayla Ragland APRN Primary Care Provid er Reason for Visit * Reason Comments Med Refill Encounter Details Date Type Department Care Team (Late st Contact Info) Description 06/21/[address] [facility] CARD[facility]OLOGY [address] [facility] [address], [place] [address] Russell Dyer MD [address] [facility] [address] [place] [address] Med Refill Social History Tobacco Use Types [...] Description 09/11/2025 10:30 AM EST Office [address] 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
--- OUTSIDE RECORDS SUMMARY | 2025-06-23 08:40 | XMS_ITS | Clinical Summary ---
Author Organization [facility] Address [address] [place] [phone] Phone Care Team Providers Care Loan Officer Assistant Name Role Phone Unavailable Primary Care Provider Unavailabl e Social History Tobacco Use Types Packs/Day Years Used Date Smoking Tobacco: Never Assessed Sex and Gender Information Value Date Recorded Sex Assigned at Not on file Legal Sex Male 1:47 PM EDT Gender Identity Not on file Sexual Orientation Not on file Plan of Treatment Health Maintenance Due Date Last Done Comments Annual Wellness Exam 1958 Hepatitis C Screening 1972 DTaP/TDaP/Td (1 - Tdap) 1973 Cologuard 11/05/1999 Colon Cancer Screening 11/05/1999 Colonoscopy 11/05/1999 FIT 11/05/1999 Sigmoidoscopy 11/05/1999 Virtual Colonography 11/05/1999 Pneumococcal Vaccine 50+ (1 of 1 - PCV) 2004 Zoster (1 of 2) 2004 COVID-19 Vaccine ( - 2024-2 6 season) 2025 Influenza Vaccine (#1) 2025 Hepatitis B Vaccine Aged Out No longe r eligible based on patient's age to complete this topic Meningococcal B Vaccine Aged Out No l onger eligible based on patient's age to complete this topic Insurance [employer] PPO
--- NOTE | 2025-06-23 10:05 | XR_ITS ---
FINAL REPORT CLINICAL HISTORY: Lt shoulder pain FINDINGS: 2 views of the left shoulder were obtained. There is no prior exam for comparison. 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 There is no acute fracture or dislocation. No acute soft tissue abnormality. IMPRESSION: No acute osseous abnormality of the left shoulder. Advanced degenerative changes. Reviewed, Interpreted and Dictated by Shanon Moncada MD Transcribed by Jasmin Darnell Authenticated and [facility]
== END 2025-06-23 23:59 | disposition home or self-care (01) ==
PROVIDERS: PCP Nurse Practitioner Family; Visit Provider Physician Assistant
DX: M19.012 Primary osteoarthritis, left shoulder (principal); M25.461 Effusion, right knee; M25.462 Effusion, left knee; M25.561 Pain in right knee; M25.562 Pain in left knee
CPT/HCPCS: 73030; 73562